=== PATIENT | female | born 1955 | race Hispanic/Latino ===

== ENCOUNTER 2017-06-26 11:49 | Emergency (ER) | payer MEDICAID, SELFPAY ==
[2017-06-26 12:28] LABS: #Basophils 0.1 thou/uL (0.0-0.2); #Eosinphils 0.4 thou/uL (0.0-0.7); #Lymphocytes 3.6 thou/uL (1.20-3.40); #Monocytes 0.7 thou/uL (0.11-0.59); #Neutrophils 4.7 thou/uL (1.40-6.50); %Basophils 0.6 % (0.0-1.0); %Eosinophils 4.8 % (0.0-10.0); %Lymphocytes 37.8 % (21.0-51.0); %Monocytes 7.3 % (0.0-10.0); Hematocrit 39.7 % (36.0-47.0); Mean Platelet Volume 9.5 fL (7.4-10.4); Red Blood Cell (RBC) Count 4.52 mill/uL (4.20-5.40); White Blood Cell (WBC) Count 9.4 thou/uL (4.8-10.8)
[2017-06-26 12:54] LABS: ALT (SGPT) 31 U/L (8-55); AST (SGOT) 36 U/L (5-34); Alkaline Phosphatase 170 U/L (40-150); Anion Gap 14 mmol/L (10-20); BUN (Urea Nitrogen) 20 mg/dL (9.8-20.1); Bilirubin, Total 0.4 mg/dL (0.2-1.2); Calc. Creatinine Clearance 0 mL/min (70-130); Calcium 9.3 mg/dL (7.8-10.44); Carbon Dioxide 21 mmol/L (22-29); Chloride 102 mmol/L (98-107); Estimated GFR-MDRD 55; Globulin 4.8 g/dL (2.4-3.5); Protein, Total 8.3 g/dL (6.0-8.3)
[2017-06-26 14:01] LABS: Bilirubin Large (Negative); Blood, Urine Large (Negative); Glucose, Urine (Dipstick) 250 mg/dL (Negative); Ketone, Urine 15 mg/dL (Negative); Nitrite Positive (Negative); Protein, Urine (Dipstick) 300 mg/dL (Neg-Trace)
[2017-06-26 14:03] LABS: Bacteria/HPF None Seen HPF (None Seen); Hyaline Casts/LPF 0-3 HYALINE CAST LPF (0-3 Hyaline); Squamous Epithelial None Seen HPF (0-3); WBC/HPF 21-50 HPF (0-3)
[2017-06-26] MEDS ORDERED: Sodium Bicarb 50 MEQ/50 ML Abboject 8.4% SYRINGE ONE (14:04)
[2017-06-26] MEDS ORDERED: Fentanyl 100 MCG/2 ML VIAL ONE (14:04)
[2017-06-26] MEDS ORDERED: Insulin Regular 300 UNITS/3 ML VIAL ONE (14:04)
[2017-06-26] MEDS ORDERED: Dextrose 50% Abboject 50 ML SYRINGE ONE (14:04)
[2017-06-26] MEDS ORDERED: Albuterol Sulfate 2.5 mg/0.5 ml Neb ONE (14:08)
[2017-06-26] MEDS ORDERED: Albuterol Sulfate 2.5 mg/3 ml Neb ONE (14:08)
[2017-06-26 14:11] LABS: RBC/HPF GREATER THAN 50-TNTC HPF (0-3)
[2017-06-26 15:55] LABS: Anion Gap 14 mmol/L (10-20); BUN (Urea Nitrogen) 22 mg/dL (9.8-20.1); Calc. Creatinine Clearance 0 mL/min (70-130); Calcium 9.1 mg/dL (7.8-10.44); Carbon Dioxide 25 mmol/L (22-29); Chloride 101 mmol/L (98-107); Estimated GFR-MDRD 47
[2017-06-26] MEDS ORDERED: Cephalexin 250 MG CAP ONE (16:56)
== END 2017-06-26 17:25 | disposition home or self-care (01) ==
LOC: ERS 11:49
DX: N39.0 Urinary tract infection, site not specified (principal); E87.5 Hyperkalemia; E11.9 Type 2 diabetes mellitus without complications; E78.5 Hyperlipidemia, unspecified; I10 Essential (primary) hypertension; R00.1 Bradycardia, unspecified; Z79.4 Long term (current) use of insulin; Z86.73 Personal history of transient ischemic attack (TIA), and cerebral infarction without residual deficits; Z79.899 Other long term (current) drug therapy; Z79.02 Long term (current) use of antithrombotics/antiplatelets; Z89.511 Acquired absence of right leg below knee; Z89.612 Acquired absence of left leg above knee
CPT/HCPCS: 36415; 51702; 80053; 81003; 81015; 85025; 93005; 94640; 96374; 96375; 96376; A4353; J1815; J3010; J7611

== ENCOUNTER 2018-02-10 18:38 | Emergency (ER) | payer SELFPAY ==
[2018-02-10 19:28] LABS: #Eosinphils 0.2 thou/uL (0.0-0.7); #Monocytes 1.4 thou/uL (0.11-0.59); #Neutrophils 6.1 thou/uL (1.40-6.50); %Basophils 0.4 % (0.0-1.0); %Eosinophils 2.1 % (0.0-10.0); %Lymphocytes 34.2 % (21.0-51.0); %Monocytes 11.9 % (0.0-10.0); %Neutrophils 51.5 % (42.0-75.0); Mean Corpuscular HGB CONC 33.1 g/dL (32.0-36.0); Mean Corpuscular Hemoglobin 28.7 pg (27.0-31.0); Mean Corpuscular Volume 86.7 fl (81.0-99.0); Mean Platelet Volume 8.6 fL (7.4-10.4); Platelet Count 230 thou/uL (130-400); RBC Distribution Width 13.4 % (11.5-14.5); Red Blood Cell (RBC) Count 3.83 mill/uL (4.20-5.40); White Blood Cell (WBC) Count 11.8 thou/uL (4.8-10.8)
[2018-02-10 19:50] LABS: ALT (SGPT) 32 U/L (8-55); AST (SGOT) 34 U/L (5-34); Albumin 3.2 g/dL (3.5-5.0); Alkaline Phosphatase 110 U/L (40-150); Anion Gap 15 mmol/L (10-20); BUN (Urea Nitrogen) 17 mg/dL (9.8-20.1); Bilirubin, Total 0.6 mg/dL (0.2-1.2); Calc. Creatinine Clearance 0 mL/min (70-130); Calcium 9.2 mg/dL (7.8-10.44); Carbon Dioxide 21 mmol/L (22-29); Chloride 97 mmol/L (98-107); Estimated GFR-MDRD 40; Globulin 5.1 g/dL (2.4-3.5); Glucose 160 mg/dL (70-105); Potassium 4.6 mmol/L (3.5-5.1); Protein, Total 8.3 g/dL (6.0-8.3); Sodium 128 mmol/L (136-145)
[2018-02-10 19:52] LABS: Bilirubin Negative (Negative); Blood, Urine Large (Negative); Clarity TURBID (Clear); Glucose, Urine (Dipstick) Negative (Negative); Leukocyte Large (Negative); Nitrite Negative (Negative); Protein, Urine (Dipstick) 100 mg/dL (Neg-Trace)
[2018-02-10 19:55] LABS: Bacteria/HPF 4+ HPF (None Seen); Squamous Epithelial 21-50 HPF (0-3)
[2018-02-10 19:57] LABS: Pathc Cast-AUWi Flag 48.26 (0-2.49); Yeast-AUWi Flag 78.1 (0-25.0)
[2018-02-10 20:05] LABS: Hyaline Casts/LPF 0-3 HYALINE CAST LPF (0-3 Hyaline); Other Casts/LPF None Seen LPF (0-3 Hyaline); Yeast-All Forms None Seen HPF (None Seen)
[2018-02-10] MEDS ORDERED: cefTRIAXone\\ROCEPHIN 1 GM VIAL ONE (20:47)
== END 2018-02-10 20:48 | disposition home or self-care (01) ==
LOC: ERS 18:38
DX: N39.0 Urinary tract infection, site not specified (principal); R07.89 Other chest pain; I49.9 Cardiac arrhythmia, unspecified; E11.9 Type 2 diabetes mellitus without complications; E78.5 Hyperlipidemia, unspecified; I10 Essential (primary) hypertension; Z86.73 Personal history of transient ischemic attack (TIA), and cerebral infarction without residual deficits; Z87.442 Personal history of urinary calculi; Z79.899 Other long term (current) drug therapy; Z79.82 Long term (current) use of aspirin; Z79.4 Long term (current) use of insulin
CPT/HCPCS: 36415; 51701; 80053; 81003; 81015; 85025; 93005; 96365; J0696

== ENCOUNTER 2018-03-24 15:39 | Inpatient (IN) | payer SELFPAY ==
[2018-03-24 16:44] LABS: #Eosinphils 0.3 thou/uL (0.0-0.7); #Lymphocytes 2.5 thou/uL (1.20-3.40); #Monocytes 0.6 thou/uL (0.11-0.59); #Neutrophils 5.7 thou/uL (1.40-6.50); %Basophils 0.5 % (0.0-1.0); %Eosinophils 3.6 % (0.0-10.0); %Lymphocytes 26.9 % (21.0-51.0); %Monocytes 6.9 % (0.0-10.0); %Neutrophils 62.2 % (42.0-75.0); Hemoglobin 10.2 g/dL (12.0-16.0); Mean Corpuscular HGB CONC 33.1 g/dL (32.0-36.0); Mean Corpuscular Hemoglobin 28.8 pg (27.0-31.0); Mean Corpuscular Volume 86.8 fL (78.0-98.0); Mean Platelet Volume 8.6 fL (7.4-10.4); Platelet Count 224 thou/uL (130-400); RBC Distribution Width 13.4 % (11.5-14.5); Red Blood Cell (RBC) Count 3.53 mill/uL (4.20-5.40); White Blood Cell (WBC) Count 9.1 thou/uL (4.8-10.8)
[2018-03-24 17:09] LABS: ALT (SGPT) 18 U/L (8-55); AST (SGOT) 21 U/L (5-34); Albumin 3.2 g/dL (3.4-4.8); Alkaline Phosphatase 71 U/L (40-150); Anion Gap 15 mmol/L (10-20); BUN (Urea Nitrogen) 41 mg/dL (9.8-20.1); Bilirubin, Total 0.4 mg/dL (0.2-1.2); Calc. Creatinine Clearance 0 mL/min (70-130); Calcium 8.4 mg/dL (7.8-10.44); Carbon Dioxide 17 mmol/L (23-31); Chloride 99 mmol/L (98-107); Estimated GFR-MDRD 14; Globulin 4.4 g/dL (2.4-3.5); Glucose 133 mg/dL (80-115); Lipase 85 U/L (8-78); Potassium 4.6 mmol/L (3.5-5.1); Protein, Total 7.6 g/dL (6.0-8.3); Sodium 126 mmol/L (136-145)
[2018-03-24 19:04] LABS: Bilirubin Negative (Negative); Blood, Urine Large (Negative); Clarity TURBID (Clear); Glucose, Urine (Dipstick) Negative (Negative); Leukocyte Large (Negative); Nitrite Negative (Negative); Protein, Urine (Dipstick) Trace mg/dL (Neg-Trace); Specific Gravity, Urine 1.005 (1.002-1.036); Urobilinogen 0.2 mg/dL (0.2-1.0); pH, Urine 5.5 (5.0-9.0)
[2018-03-24 19:06] LABS: Bacteria/HPF 3+ HPF (None Seen); Hyaline Casts/LPF 4-6 HYALINE CAST LPF (0-3 Hyaline); Squamous Epithelial None Seen HPF (0-3)
[2018-03-24] MEDS ORDERED: cefTRIAXone\\ROCEPHIN 2 GM VIAL ONE (20:29)
[2018-03-24 21:13] LABS: CKMB 2.5 ng/mL (0-6.6); Troponin I Less than 0.010 ng/mL (< 0.028)
--- NOTE | 2018-03-24 21:20 | RAD ---
ONE VIEW CHEST: 03/24/18 HISTORY: Pain. COMPARISON: 05/30/16. FINDINGS: Normal cardiac silhouette. The pulmonary vessels and hilum are normal. Costophrenic angles are clear. No consolidation or mass. No pneumothorax. Irregularity involving the proximal right humerus. Correl ate for an acute process. Dedicated humerus radiograph may be beneficial. Left sided transvenous pace maker is unchanged. IMPRESSION: 1. No acute cardiopulmonary process. 2. Changes involving the proximal right humerus. Correlate clinically. Dedicated imaging as so hawkins. POS: [facility]
[2018-03-25 01:22] VITALS: BMI 40.1
[2018-03-25] MEDS: Sodium Chloride 0.9% 1,000 ML IV SCH ×4 (02:11→18:18)
[2018-03-25] MEDS ORDERED: Dextrose 5% in Water 1,000 ML IV PRN (04:24)
[2018-03-25] MEDS ORDERED: Dextrose 50% Abboject 50 ML SYRINGE SLOW IVP PRN (04:24)
[2018-03-25] MEDS ORDERED: Ondansetron ODT 4 MG TAB PO PRN (05:10)
[2018-03-25] MEDS ORDERED: Ondansetron HCl/PF 4 MG/2 ML Vial IVP PRN (05:10)
--- NOTE | 2018-03-25 05:13 | HP ---
DATE OF ADMISSION: 03/24/2018 PRIMARY CARE PHYSICIAN: Celine Jones M.D. CHIEF COMPLAINT: Generalized weakness with low blood sugar. HISTORY OF PRESENT ILLNESS: The patient is a 63-year-old female with hypertension, chronic kidney di sease stage 3, and diabetes mellitus type 2, presented to the hospital with above complaints. The patient was recently diagnosed with urinary tract infection. She was started on ciprofloxacin by her PCP. She continues to have generalized weakness with foul odor urine. She had some dysuria; ho wever, denies any hematuria or urgency. She has been feeling generally weak. She had 3-4 episodes o f watery diarrhea yesterday. She felt nauseous; however, denies any vomiting. She takes 40 units of NovoLog mix 70/30 twice a day. She is not eating much due to generalized weakness. PAST MEDICAL HISTORY: 1. Diabetes mellitus type 2. 2. Hypertension. 3. History of Escherichia coli urinary tract infection in 2016. 4. Peripheral vascular disease, status post bilateral below knee amputation. 5. Hypertension. 6. Dyslipidemia. 7. History of cerebrovascular accident. 8. Chronic kidney disease stage 3. 9. Coronary artery disease. PAST SURGICAL HISTORY: 1. Bilateral below knee amputation. 2. History of bradycardia, status post pacemaker placement. 3. . 4. Chronic anemia. ALLERGIES: No known drug allergies. HOME MEDICATIONS: To be verified with the family. SOCIAL HISTORY: The patient currently lives at home with her . Daughter is the caregiver. N o tobacco, alcohol, or drug use reported. FAMILY HISTORY: Negative for heart disease or inheritable diseases. REVIEW OF SYSTEMS: The following complete review of systems was negative, unless otherwise mentioned in the HPI or below: Constitutional: Weight loss or gain, ability to conduct usual activities. Ski n: Rash, itching. Eyes: Double vision, pain. ENT/Mouth: Nose bleeding, neck stiffness, pain, tend erness. Cardiovascular: Palpitations, dyspnea on exertion, orthopnea. Respiratory: Shortness of b reath, wheezing, cough, hemoptysis, fever or night sweats. Gastrointestinal: Poor appetite, abdomin al pain, heartburn, nausea, vomiting, constipation, or diarrhea. Genitourinary: Urgency, frequency, dysuria, nocturia. Musculoskeletal: Pain, swelling. Neurologic/Psychiatric: Anxiety, depression. Allergy/Immunologic: Skin rash, bleeding tendency. PHYSICAL EXAMINATION: VITAL SIGNS: In the emergency room showed temperature 99 with respiration 18, pulse rate of 80, bloo d pressure 138/79 with O2 saturation 96% on room air. GENERAL: A 63-year-old female in no apparent distress. Feels generally weak. HEENT: Atraumatic, normocephalic, Sclerae are anicteric. Moist mucous membrane, no oral lesion. NECK: Supple, no JVD appreciated. No carotid bruit. LUNGS: Clear to auscultation bilaterally, no wheezing, rales, or rhonchi. HEART: S1, S2 present. Regular rate and rhythm. No murmur, rubs, or gallops appreciated. ABDOMEN: Soft, nontender, bowel sounds present. There was costovertebral angle tenderness on the le ft. EXTREMITIES: The patient has bilateral below knee amputation. SKIN: Warm and dry. LYMPH NODES: No palpable lymph nodes in the neck. PERIPHERAL VASCULAR: Radial pulses palpable bilaterally. MUSCULOSKELETAL: No joint swelling or tenderness. LABORATORY FINDINGS: CBC showed WBC 9.1 with hemoglobin 10.2, hematocrit 30.6, and platelet 224. Ch emistries showed sodium 126, potassium 4.6, chloride 99, bicarbonate 17, BUN 41, creatinine 3.29. Cr eatinine last year was 1.02. Blood sugar in the emergency room was 50. Urinalysis showed greater th an 50 wbc's with 3+ bacteria. Chest x-ray by my review was negative for infiltrate. EKG by my toya w showed sinus rhythm with left axis deviation, right bundle branch block. IMPRESSION: 1. Hypoglycemia, probably secondary to poor appetite. The patient continues to take full dose of in sulin. 2. Acute kidney injury on chronic kidney disease stage 3, multifactorial. 3. Urinary tract infection, patient failed outpatient therapy. 4. Metabolic acidosis, probably secondary to renal failure. 5. Hyponatremia, probably secondary to dehydration. 6. Chronic anemia. 7. Hypertension. 8. Hyperlipidemia. 9. Coronary artery disease. 10. History of bradycardia, status post pacemaker. 11. History of cerebrovascular accident. PLAN: The patient is currently admitted on the telemetry unit. We will continue empiric antibiotics . Her blood sugars will be done every 2 hours. We will initiate hypoglycemic protocol. We will hol d long-acting insulin for now. We will resume other home medications once confirmed. We will get re nal ultrasound for acute kidney injury. We will continue IV fluids at 150 mL per hour. Blood and ur ine cultures have been sent. Plan of care was discussed with the patient in detail, she stated understanding. Please note that avelina staples is [place]ic-speaking only. History was obtained with the help of her at the bedside.
[2018-03-25 06:10] LABS: Anion Gap 12 mmol/L (10-20); BUN (Urea Nitrogen) 36 mg/dL (9.8-20.1); BUN/Creatinine Ratio 12.29; Calc. Creatinine Clearance 19 mL/min (70-130); Calcium 8.2 mg/dL (7.8-10.44); Carbon Dioxide 17 mmol/L (23-31); Chloride 105 mmol/L (98-107); Estimated GFR-MDRD 16; Glucose 118 mg/dL (80-115); Phosphorus 5.4 mg/dL (2.3-4.7); Potassium 5.1 mmol/L (3.5-5.1); Sodium 129 mmol/L (136-145)
[2018-03-25 06:12] LABS: #Eosinphils 0.3 thou/uL (0.0-0.7); #Monocytes 0.6 thou/uL (0.11-0.59); #Neutrophils 4.9 thou/uL (1.40-6.50); %Basophils 0.6 % (0.0-1.0); %Eosinophils 4.2 % (0.0-10.0); %Lymphocytes 25.1 % (21.0-51.0); %Neutrophils 62.2 % (42.0-75.0); Hemoglobin 10.1 g/dL (12.0-16.0); Mean Corpuscular HGB CONC 32.3 g/dL (32.0-36.0); Mean Corpuscular Volume 86.8 fL (78.0-98.0); Mean Platelet Volume 8.7 fL (7.4-10.4); Platelet Count 194 thou/uL (130-400); RBC Distribution Width 13.6 % (11.5-14.5); Red Blood Cell (RBC) Count 3.62 mill/uL (4.20-5.40); White Blood Cell (WBC) Count 7.8 thou/uL (4.8-10.8)
[2018-03-25] MEDS: Heparin 5,000 UNITS/ML VIAL SC SCH ×2 (09:30→21:32)
[2018-03-25] MEDS: Clopidogrel Bisulfate 75 MG TAB PO SCH (09:30)
[2018-03-25] MEDS: Famotidine 20 MG TAB PO SCH (09:30)
--- NOTE | 2018-03-25 10:52 | ULT ---
RENAL SONOGRAM: Date: 03-25-18 History: Acute renal insufficiency. FINDINGS: Kidneys demonstrate a normal sonographic appearance without evidence of a renal mass, renal calculus or hydronephrosis. The right kidney measures 10.8 cm x 5.4 cm with the left kidney measuring 10.6 cm x 6.7 cm. There is no evidence of renal cortical thinning. No perinephric fluid collection is identified. Urinary bladder is partially distended with urinary bladder volume of 228.5 ml. The urinary bladder h as a grossly normal sonographic appearance. The ureteral jets are seen bilaterally on color flow eval uation. IMPRESSION: Normal appearing bilateral kidneys without evidence of hydronephrosis. POS: [facility]
[2018-03-25 17:37] LABS: Hemoglobin A1c 7.9 % (4.0-6.0)
[2018-03-25] MEDS: cefTRIAXone\\ROCEPHIN 1 GM in Sodium Chloride 0.9% 100 ML IVPB SCH (21:31)
[2018-03-25] MEDS: Insulin Regular 300 UNITS/3 ML VIAL SC PRN (21:31)
[2018-03-25] MEDS: Simvastatin 20 MG TAB PO SCH (21:32)
--- NOTE | 2018-03-25 22:34 | PDOC.EVN ---
Event Note - Event Note Event Note: Records reviewed. Patient examined. Has recurrent UTI's. Has been on antibiotics but still has some infection. Will need to wait on the culture results. Needs post-void residuals. Urology.
--- NOTE | 2018-03-25 23:04 | CON ---
DATE OF CONSULTATION: 03/25/2018 PRIMARY CARE PHYSICIAN: Dr. Jones. REFERRING: Hospitalist. REASON FOR CONSULTATION: Recurrent urinary tract infection. HISTORY OF PRESENT ILLNESS: Ms. Redman is a 63-year-old female admitted due to acute kidney injury, UTI, recurrent with metabolic acidosis, hyponatremia. Patient admitted through the Hospitalist Service, renal ultrasound was obtained due to acute kidney injury with creatinine of 3.2. Negative for hydronephrosis. I saw the patient once, referred by Dr. Jones back in 07/2017 with no subsequent followup. Her two [id number] are at bedside. They relate that they were unable to follow up with appointments, workup due to financial constraints, relates that they have been seen in Urgent Care setting for recurrent UTI and discharged with antibiotic therapy. Due to persistent symptoms, generalized malaise and vague abdominal discomfort and urine output demonstrating findings concerning for cystitis, they presented to the emergency room. On initial visit with me, her physical exam demonstrated grade I rectocele, I was able to pass the catheter without significant issues, she had 350 mL of post-void residual. She was advised regarding workup with imaging, cystoscopy at a later date. However, subsequent note showed she does have a prior CT dating back to August 11/2016 demonstrating bilateral renal cortical scarring with no hydronephrosis. Prior CT with UTI in 01/2016 demonstrated punctate focus of air consistent with cystitis. Suspicion was low for occult colovesical fistula as there is no significant perivesical stranding , nor significant inflammatory bowel adherence. However, she was advised regarding cystoscopy at a later date with no show. PAST MEDICAL HISTORY: Diabetes, poorly controlled, CVA, CAD, pacemaker, GERD. PAST SURGICAL HISTORY: Pacemaker in 2009. Bilateral BKA, debridement of right foot. CURRENT MEDICATIONS: Include Tylenol, aspirin, Plavix, Rocephin, Pepcid, glucagon, heparin subQ, Humulin, Zofran, Zocor. ALLERGIES: No known drug allergies. PHYSICAL EXAMINATION: VITAL SIGNS: She is afebrile. Vital signs are stable. She has been incontinent of urine. PVR per my request demonstrated 250 mL. GENERAL: Patient is resting comfortably. HEENT: Grossly unremarkable. HEART: Regular rate. LUNGS: Clear. ABDOMEN: Soft. Midline infraumbilical incision consistent with prior C- section. Postvoid residual was approximately 250-300 at bedside on bladder scan. GENITOURINARY: Demonstrates severe atrophic vaginitis grade I-II rectocele. Urethral meatus is easily visible. EXTREMITIES: Lower extremity consistent with bilateral BKA. As family relates that there is pustular discharge previously, I did place a catheter at bedside demonstrating approximately 250 mL of initial clear urine. Pyeocystitis is noted. Cultures were sent. Blood tinged urine at the end of emptying bladder was noted. It flushes gently with ease. PERTINENT LABS AND IMAGING: Urine culture gram negative lb. UA demonstrates yellow with large blood, 11-20 rbc's, greater than 50 wbc's, 3+ bacteria. Blood culture is negative thus far. Her hemoglobin A1c back in 01/2015 was 13, 8.8 in 07/2016. Baseline creatinine 0.7-1.3, admitting creatinine 3.2, currently 2.9, hyponatremia at 129 is noted. Renal ultrasound on this admission demonstrates no evidence of hydronephrosis. Patient has been on aggressive IV fluid resuscitation. No evidence of hydronephrosis, renal mass. Bilateral ureteral jets are seen. PVR 228 on bladder ultrasound with no evidence of bladder mass. IMPRESSION AND PLAN: 1. Ms. Redman is a 63-year-old female with history of poorly controlled diabetes. 2. History of atrophic vaginitis. 3. History of incomplete void, presents with recurrent UTI, suboptimally treated. Failed outpatient treatment. Catheter placed due to pyelocystitis. Recommend aggressive IV fluids. Follow cultures. Agree with Rocephin. continue indwelling Meng catheter until urine output is relatively cleared. MTDD
[2018-03-25] MEDS: Acetaminophen 325 MG TAB PO PRN (23:21)
[2018-03-26] MEDS: Sodium Chloride 0.9% 1,000 ML IV SCH ×3 (01:43→16:24)
--- NOTE | 2018-03-26 09:01 | PRG ---
DATE OF SERVICE: 03/26/2018 SUBJECTIVE: The patient is resting comfortably. PHYSICAL EXAMINATION: VITAL SIGNS: Afebrile. Strict I's and O's not documented. She has had 2 liters of urine output, clear dilute, there is some sediment. She has had multiple bowel movements per nursing staff. C. diff culture yet to be collected. Physical exam: Patient sleeping comfortably Abdomen: Soft nontender nondistended, Meng catheter demonstrating yellow urine , with some sediments E: Bilateral BKA LABORATORY DATA: There are no recent labs from today. Yesterday White count 7 , hemoglobin 10. The patient was admitted with creatinine of 3.2, yesterday 2.9. Baseline creatinine variable from 0.7 to 1.3. Renal ultrasound on admission demonstrating no evidence of hydronephrosis. IMPRESSION AND PLAN: 1. Ms. Redman is a 63-year-old female with history of poorly controlled diabetes. 2. Cerebrovascular accident. 3. Coronary artery disease. 4. Acute renal insufficiency prerenal/renal: No evidence of hydronephrosis 5. Recurrent urinary tract infection, with history of incomplete void of PVR of 250-300. 6. History of noncompliance. Current admission due to failed outpatient treatment of urinary tract infection. Final urine culture is pending. She is on Rocephin with no evidence of septic parameters. I did place a Meng catheter yesterday with 250- 300 mL of post-void residual, with significant pyocystitis. Therefore, Meng catheter will remain in situ until she clinically recovers from her acute urinary tract infection. She is being worked up for possible C. diff as she has had profuse diarrhea. Anticipate patient will stay in the hospital over the weekend. When she is clinically improved , will initiate voiding trial and monitor postvoid residual. teach family CIC if indicated. Continue medical management with antibiotics, Meng for now. Dr. Mcdonough covering me this weekend for p.r.n. issues. MTDD
[2018-03-26] MEDS: Famotidine 20 MG TAB PO SCH (09:29)
[2018-03-26] MEDS: Clopidogrel Bisulfate 75 MG TAB PO SCH (09:29)
[2018-03-26] MEDS: Heparin 5,000 UNITS/ML VIAL SC SCH ×2 (09:30→20:27)
[2018-03-26] MEDS: Insulin Regular 300 UNITS/3 ML VIAL SC PRN (11:43)
[2018-03-26] MEDS: cefTRIAXone\\ROCEPHIN 1 GM in Sodium Chloride 0.9% 100 ML IVPB SCH (20:26)
[2018-03-26] MEDS: Simvastatin 20 MG TAB PO SCH (20:27)
--- NOTE | 2018-03-26 23:04 | PDOC.PN ---
- Subjective Encounter Start Date: 03/26/18 Encounter Start Time: 15:35 Doing better. No new complaints. - Objective Resuscitation Status: Resuscitation Status FULL:Full Resuscitation Vital Signs & Weight: Vital Signs (12 hours) Temp Pulse Resp BP Pulse Ox 03/26/18 20:24 98.5 F 70 20 99 03/26/18 20:00 98.5 F 70 20 177/61 H 100 03/26/18 16:00 98.8 F 63 20 165/44 H 99 03/26/18 15:20 99 03/26/18 12:00 98.5 F 80 22 H 147/52 H 99 Weight Weight 131 lb 6 oz I&O: 03/25/18 03/26/18 03/27/18 06:59 06:59 06:59 Intake Total 811 2950 2650 Output Total 1999 2450 Balance 811 950 200 Result Diagrams: 03/25/18 05:13 03/25/18 05:13 Additional Labs: Accuchecks 03/26/18 03/26/18 03/26/18 20:29 16:46 10:42 POC Glucose 295 H 306 H 263 H 03/26/18 03/26/18 08:19 05:43 POC Glucose 170 H 162 H Phys Exam - Physical Examination Constitutional: NAD HEENT: oral pharynx no lesions Respiratory: no wheezing, no rales, no rhonchi, clear to auscultation bilateral Cardiovascular: RRR, no significant murmur Gastrointestinal: soft, non-tender, no distention, positive bowel sounds Musculoskeletal: no edema BLE BKA Dx/Plan (1) Urine retention Code(s): R33.9 - RETENTION OF URINE, UNSPECIFIED Status: Acute (2) UTI (urinary tract infection) Status: Acute (3) CKD (chronic kidney disease), stage III Status: Chronic (4) Diabetes type 2, uncontrolled Code(s): E11.65 - TYPE 2 DIABETES MELLITUS WITH HYPERGLYCEMIA Status: Chronic Qualifiers: - Plan * Continue with Abx. Leave Meng for now. Will need bladder training.
[2018-03-27] MEDS: Insulin Regular 300 UNITS/3 ML VIAL SC PRN ×4 (01:35→20:09)
[2018-03-27] MEDS: Sodium Chloride 0.9% 1,000 ML IV SCH ×3 (03:33→17:52)
[2018-03-27] MEDS: Heparin 5,000 UNITS/ML VIAL SC SCH ×2 (09:33→20:05)
[2018-03-27] MEDS: Clopidogrel Bisulfate 75 MG TAB PO SCH (09:33)
[2018-03-27] MEDS: Famotidine 20 MG TAB PO SCH (09:33)
--- NOTE | 2018-03-27 11:17 | EKG ---
Test Reason : Blood Pressure : / mmHG Vent. Rate : 072 BPM Atrial Rate : 072 BPM P-R Int : 166 ms QRS Dur : 128 ms QT Int : 492 ms P-R-T Axes : -02 -61 -05 degrees QTc Int : 538 ms Normal sinus rhythm Left axis deviation Right bundle branch block Possible Lateral infarct , age undetermined Inferior infarct , age undetermined Abnormal ECG Confirmed by KELLY STAPLETON M.D. ([id number]), graphic editor FANI CRUZ ([id number]) on 03/27/2018 11:17:08 AM Referred By: Confirmed By:KELLY STAPLETON M.D.
--- NOTE | 2018-03-27 12:25 | PDOC.PN ---
- Subjective Encounter Start Date: 03/27/18 Encounter Start Time: 12:21 Doing very well. No new complaints. She has understanding of the situation. - Objective Resuscitation Status: Resuscitation Status FULL:Full Resuscitation Vital Signs & Weight: Vital Signs (12 hours) Temp Pulse Resp BP Pulse Ox 03/27/18 11:00 98.7 F 72 18 177/70 H 100 03/27/18 10:59 100 03/27/18 07:49 98.5 F 66 20 98 03/27/18 07:00 98.5 F 66 20 161/62 H 100 03/27/18 03:57 97.7 F 74 20 182/61 H 100 Weight Weight 131 lb 6 oz I&O: 03/26/18 03/27/18 03/28/18 06:59 06:59 06:59 Intake Total 2950 4527 Output Total 1999 5350 Balance 950 -823 Result Diagrams: 03/25/18 05:13 03/25/18 05:13 Additional Labs: Accuchecks 03/27/18 03/27/18 03/27/18 10:38 05:40 01:31 POC Glucose 190 H 172 H 271 H 03/26/18 03/26/18 20:29 16:46 POC Glucose 295 H 306 H Phys Exam - Physical Examination Constitutional: NAD Respiratory: no wheezing, no rales, no rhonchi, clear to auscultation bilateral Cardiovascular: RRR, no significant murmur, no rub Gastrointestinal: soft, non-tender, no distention Musculoskeletal: no edema Psychiatric: normal affect Dx/Plan (1) Urine retention Code(s): R33.9 - RETENTION OF URINE, UNSPECIFIED Status: Acute Comment: Urology consulted. Meng placed. (2) UTI (urinary tract infection) Status: Acute (3) CKD (chronic kidney disease), stage III Status: Chronic (4) Diabetes type 2, uncontrolled Code(s): E11.65 - TYPE 2 DIABETES MELLITUS WITH HYPERGLYCEMIA Status: Chronic Qualifiers: - Plan * Continue IV abx. E. coli. May have some oral options with Augmentin or Omnicef. Will consider that in a day or two. * Continue to control blood sugars. * Will keep Meng for now. Anticipate follow up from Urology on Thursday with removal of the Meng and bladder training. May be able to do that as outpatient.
[2018-03-27] MEDS: cefTRIAXone\\ROCEPHIN 1 GM in Sodium Chloride 0.9% 100 ML IVPB SCH (20:05)
[2018-03-27] MEDS: Simvastatin 20 MG TAB PO SCH (20:05)
[2018-03-28] MEDS: Sodium Chloride 0.9% 1,000 ML IV SCH ×4 (01:35→18:17)
[2018-03-28] MEDS: Insulin Regular 300 UNITS/3 ML VIAL SC PRN ×3 (06:05→16:25)
[2018-03-28] MEDS: Clopidogrel Bisulfate 75 MG TAB PO SCH (08:56)
[2018-03-28] MEDS: Famotidine 20 MG TAB PO SCH (08:56)
[2018-03-28] MEDS: Heparin 5,000 UNITS/ML VIAL SC SCH ×2 (08:57→21:57)
[2018-03-28 09:16] LABS: #Eosinphils 0.4 thou/uL (0.0-0.7); #Lymphocytes 2.1 thou/uL (1.20-3.40); #Monocytes 0.3 thou/uL (0.11-0.59); %Basophils 0.4 % (0.0-1.0); %Eosinophils 6.2 % (0.0-10.0); %Lymphocytes 35.7 % (21.0-51.0); %Monocytes 5.5 % (0.0-10.0); %Neutrophils 52.3 % (42.0-75.0); Hemoglobin 10.7 g/dL (12.0-16.0); Mean Corpuscular HGB CONC 33.3 g/dL (32.0-36.0); Mean Corpuscular Volume 87.1 fL (78.0-98.0); Mean Platelet Volume 8.5 fL (7.4-10.4); Platelet Count 207 thou/uL (130-400); RBC Distribution Width 13.4 % (11.5-14.5); Red Blood Cell (RBC) Count 3.68 mill/uL (4.20-5.40); White Blood Cell (WBC) Count 5.8 thou/uL (4.8-10.8)
--- NOTE | 2018-03-28 09:16 | PDOC.PN ---
- Subjective Encounter Start Date: 03/28/18 Encounter Start Time: 09:14 Doing well today. No new complaints. - Objective Resuscitation Status: Resuscitation Status FULL:Full Resuscitation MAR Reviewed: Yes Vital Signs & Weight: Vital Signs (12 hours) Temp Pulse Resp BP Pulse Ox 03/28/18 07:53 98.3 F 78 20 169/67 H 95 03/28/18 04:00 98.2 F 78 19 176/76 H 96 03/28/18 00:57 166/75 H 03/28/18 00:00 98 F 71 19 182/76 H 98 Weight Weight 131 lb 6 oz I&O: 03/27/18 03/28/18 03/29/18 06:59 06:59 06:59 Intake Total 4551 5175 Output Total 1581 5502 Balance -823 -350 Result Diagrams: 03/25/18 05:13 03/25/18 05:13 Additional Labs: Accuchecks 03/28/18 03/27/18 03/27/18 05:28 20:10 17:03 POC Glucose 186 H 284 H 319 H 03/27/18 10:38 POC Glucose 190 H Phys Exam - Physical Examination Constitutional: NAD Neck: no JVD, supple Respiratory: no wheezing, no rales, no rhonchi, clear to auscultation bilateral Cardiovascular: RRR, no significant murmur, no rub Gastrointestinal: soft, non-tender, no distention, positive bowel sounds Musculoskeletal: no edema Stumps look good. Psychiatric: normal affect Dx/Plan (1) Urine retention Code(s): R33.9 - RETENTION OF URINE, UNSPECIFIED Status: Acute Comment: Urology consulted. Meng placed. Hope to have Urology see patient again in the morning to address the plan for this. (2) UTI (urinary tract infection) Status: Acute Comment: E. coli. Continue IV abx today. Can likely DC tomorrow with po Omnicef with Meng for outpatient follow up with Urology or with Meng DC'd and bladder training. (3) CKD (chronic kidney disease), stage III Status: Chronic (4) Diabetes type 2, uncontrolled Code(s): E11.65 - TYPE 2 DIABETES MELLITUS WITH HYPERGLYCEMIA Status: Chronic Qualifiers: Comment: Not great control. Has been on ISS. Will resume home meds today. (5) Hypertension Code(s): I10 - ESSENTIAL (PRIMARY) HYPERTENSION Status: Chronic Qualifiers: Hypertension type: essential hypertension Qualified Code(s): I10 - Essential (primary) hypertension Comment: Resuming home meds. - Plan * .
[2018-03-28 09:40] LABS: Anion Gap 13 mmol/L (10-20); BUN (Urea Nitrogen) 15 mg/dL (9.8-20.1); Calc. Creatinine Clearance 32 mL/min (70-130); Calcium 8.3 mg/dL (7.8-10.44); Carbon Dioxide 17 mmol/L (23-31); Chloride 110 mmol/L (98-107); Estimated GFR-MDRD 30; Glucose 223 mg/dL (80-115); Potassium 4.1 mmol/L (3.5-5.1); Sodium 136 mmol/L (136-145)
[2018-03-28] MEDS ORDERED: Losartan 25 MG TAB PO SCH ×2 (10:00→23:00)
[2018-03-28] MEDS ORDERED: Insulin NPH/Reg Insulin Hm 300 UNITS/3 ML VIAL SC SCH (10:00)
[2018-03-28] MEDS ORDERED: Famotidine 20 MG TAB PO SCH (21:00)
[2018-03-28] MEDS: Simvastatin 20 MG TAB PO SCH (21:57)
[2018-03-28] MEDS: cefTRIAXone\\ROCEPHIN 1 GM in Sodium Chloride 0.9% 100 ML IVPB SCH (21:57)
[2018-03-28] MEDS: Insulin NPH/Reg Insulin Hm 300 UNITS/3 ML VIAL SC SCH (21:58)
[2018-03-28] MEDS ORDERED: hydrALAZINE 20 MG/ML VIAL SLOW IVP PRN (22:46)
[2018-03-29 05:38] LABS: Anion Gap 13 mmol/L (10-20); BUN (Urea Nitrogen) 13 mg/dL (9.8-20.1); Calc. Creatinine Clearance 34 mL/min (70-130); Carbon Dioxide 17 mmol/L (23-31); Chloride 111 mmol/L (98-107); Estimated GFR-MDRD 32; Glucose 63 mg/dL (80-115); Potassium 3.7 mmol/L (3.5-5.1); Sodium 137 mmol/L (136-145)
[2018-03-29] MEDS: Sodium Chloride 0.9% 1,000 ML IV SCH ×2 (07:03→20:27)
[2018-03-29 07:08] LABS: Hemoglobin 10.1 g/dL (12.0-16.0); Mean Corpuscular HGB CONC 33.1 g/dL (32.0-36.0); Mean Corpuscular Hemoglobin 28.9 pg (27.0-31.0); Mean Corpuscular Volume 87.5 fL (78.0-98.0); Mean Platelet Volume 8.5 fL (7.4-10.4); Platelet Count 203 thou/uL (130-400); RBC Distribution Width 13.4 % (11.5-14.5); Red Blood Cell (RBC) Count 3.48 mill/uL (4.20-5.40); White Blood Cell (WBC) Count 7.6 thou/uL (4.8-10.8)
--- NOTE | 2018-03-29 08:29 | PRG ---
DATE OF SERVICE: 03/29/2018 SUBJECTIVE: The patient is alert and awake, family at bedside. No acute complaints. PHYSICAL EXAMINATION: VITAL SIGNS: Stable. She is afebrile. I's and O's 3900 in, 4900 out, p.o. intake over 1.4 liters. ABDOMEN: Soft, nontender, nondistended. GENITOURINARY: Meng catheter demonstrating clear yellow urine, minimal sediment is noted. PERTINENT LABORATORY: Creatinine 1.62, white count 7, hemoglobin 10, platelet 203. Urine culture demonstrating E. coli resistant to quinolones and Bactrim, sensitive to cephalosporins, Macrobid. Blood culture is negative. ALLERGIES: She has no known drug allergies. Renal ultrasound on admission 03/25/2018 demonstrates no hydronephrosis. IMPRESSION AND PLAN: 1. Ms. Redman is a 63-year-old female with history of poorly controlled diabetes. Recent hemoglobin A1c has normalized. 2. History of cerebrovascular accident. 3. Coronary artery disease. 4. Chronic renal insufficiency, likely prerenal/renal as there is no evidence of hydronephrosis. 5. History of recurrent urinary tract infection with incomplete void. PVR 250- 300 mL. Currently on Rocephin, doing well. We will discontinue Meng now and initiate voiding trial and bladder rehab. Strict instructions regarding bladder scan every 6 hours to be catheterized if postvoid residual greater than 200 mL. Recommend the patient be observed for 24 hours to monitor voiding status. If she has persistent postvoid residual of concern, family member to be instructed regarding CIC technique. Elective cystoscopy is advised. MTDD
[2018-03-29 08:34] LABS: Band 5 % (5-11); Eosinophils 2 % (0-10); Lymphocytes 41 % (21-51); MDiff Complete? YES; Monocytes 6 % (0-10); Neutrophil 46 % (42-75); PLT Morphology Comment Appears Adequate; Polychromasia SLIGHT = 2-3 cells (100X) (0-2/hpf)
[2018-03-29] MEDS: Losartan 25 MG TAB PO SCH (09:00)
[2018-03-29] MEDS ORDERED: Insulin NPH/Reg Insulin Hm 300 UNITS/3 ML VIAL SC SCH (09:00)
[2018-03-29] MEDS ORDERED: Losartan 25 MG TAB PO SCH ×2 (09:00)
[2018-03-29] MEDS: Multivitamin W/ Minerals 1 TAB PO SCH (09:01)
[2018-03-29] MEDS: Clopidogrel Bisulfate 75 MG TAB PO SCH (09:01)
[2018-03-29] MEDS: Heparin 5,000 UNITS/ML VIAL SC SCH ×2 (09:01→20:27)
[2018-03-29] MEDS: Famotidine 20 MG TAB PO SCH (09:01)
[2018-03-29] MEDS: Insulin NPH/Reg Insulin Hm 300 UNITS/3 ML VIAL SC SCH ×2 (09:03→20:55)
--- NOTE | 2018-03-29 14:23 | PDOC.PN ---
- Subjective Encounter Start Date: 03/29/18 Encounter Start Time: 14:21 - Objective Resuscitation Status: Resuscitation Status FULL:Full Resuscitation Vital Signs & Weight: Vital Signs (12 hours) Temp Pulse Resp BP Pulse Ox 03/29/18 08:00 98.8 F 72 16 97 03/29/18 07:19 98.8 F 72 16 180/90 H 97 03/29/18 04:17 98.8 F 75 16 157/57 H 97 Weight Weight 131 lb 6 oz I&O: 03/28/18 03/29/18 03/30/18 06:59 06:59 06:59 Intake Total 5175 3990 Output Total 5588 4900 850 Balance -666 -910 -850 Result Diagrams: 03/29/18 04:30 03/29/18 04:30 Additional Labs: Accuchecks 03/29/18 03/29/18 03/29/18 11:22 06:29 05:39 POC Glucose 125 H 80 67 L 03/28/18 03/28/18 20:24 15:34 POC Glucose 92 163 H Phys Exam - Physical Examination Constitutional: NAD Respiratory: no wheezing, no rales, no rhonchi, clear to auscultation bilateral Cardiovascular: RRR, no significant murmur Gastrointestinal: soft, non-tender, no distention, positive bowel sounds Bilateral BKA Psychiatric: normal affect Dx/Plan (1) Urine retention Code(s): R33.9 - RETENTION OF URINE, UNSPECIFIED Status: Acute Comment: Meng DC'd. Voiding trial now. First void had PVR of 125. (2) UTI (urinary tract infection) Status: Acute Comment: E. coli. Continue IV abx today. Can likely DC tomorrow with po and with either self voiding or intermittent cath. (3) CKD (chronic kidney disease), stage III Status: Chronic (4) Diabetes type 2, uncontrolled Code(s): E11.65 - TYPE 2 DIABETES MELLITUS WITH HYPERGLYCEMIA Status: Chronic Qualifiers: Comment: Not great control. Has been on ISS. Will resume home meds today. (5) Hypertension Code(s): I10 - ESSENTIAL (PRIMARY) HYPERTENSION Status: Chronic Qualifiers: Hypertension type: essential hypertension Qualified Code(s): I10 - Essential (primary) hypertension Comment: Adding Amlodipine 5 mg po q day. - Plan * Should likely DC tomorrow with either spont voiding or intermittent cath depending on how she does with the voiding today. Will need po abx (possibly Omnicef).
[2018-03-29] MEDS: Amlodipine 5 MG TAB PO SCH (15:37)
[2018-03-29] MEDS: cefTRIAXone\\ROCEPHIN 1 GM in Sodium Chloride 0.9% 100 ML IVPB SCH (20:26)
[2018-03-29] MEDS: Simvastatin 20 MG TAB PO SCH (20:27)
[2018-03-30] MEDS: Sodium Chloride 0.9% 1,000 ML IV SCH ×2 (05:58→21:26)
--- NOTE | 2018-03-30 08:15 | PRG ---
DATE OF SERVICE: 03/30/2018 SUBJECTIVE: The patient is resting comfortably. Family member at bedside. Vital signs are stable. PHYSICAL EXAMINATION: ABDOMEN: Soft, nontender, nondistended. GENITOURINARY: Voiding diary reviewed. The patient voiding spontaneously; however, has consistent postvoid residual variable from 300 to 350 on CICs, which she is tolerating uneventfully. PERTINENT LABORATORY DATA: No new labs. 1. Last creatinine, of record, is 1.62. Admitting creatinine 3.2. 2. Renal ultrasound demonstrating no evidence of hydronephrosis. 3. Blood culture negative. 4. Urine culture demonstrating E. coli, resistant to quinolones, currently on Rocephin. IMPRESSION AND PLAN: Ms. Redman is a 63-year-old female with, 1. History of poorly controlled diabetes, prior most recent A1c has improved to 7.9. She does have a history of significantly elevated hemoglobin A1c in the past. She presents with recurrent urinary tract infection, failed outpatient treatment. 2. History of medical noncompliance with followup. Per family unable to proceed with workup due to financial constraints. 3. 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 Continue bladder rehabilitation with CICs. As there is consistent elevated postvoid residual of 350 mL, I do recommend [id number] every 6 hours. Orders provided for nursing staff to teach patient and family members. Case management consultation obtained, as they need financial assistance, obtained CICs catheter supplies, timeline is indefinite, as the patient may have chronic retention requiring indefinite time CICs, pending clinical course. The patient can be discharged when medically cleared. However, her financial issues with CIC catheter needs to be addressed prior to discharge. appointment is in chart. She may be transitioned to oral Omnicef for 7-10 days. followup appointment in chart, 04/27/2018 at 11:00 a.m. Recommend the patient/family keep a voiding diary of post-void residual. Elective cystoscopy at a later date. LAURENT
[2018-03-30] MEDS: Heparin 5,000 UNITS/ML VIAL SC SCH ×2 (09:27→21:12)
[2018-03-30] MEDS: Insulin NPH/Reg Insulin Hm 300 UNITS/3 ML VIAL SC SCH ×2 (09:29→21:12)
[2018-03-30] MEDS: Losartan 25 MG TAB PO SCH (09:30)
[2018-03-30] MEDS: Amlodipine 5 MG TAB PO SCH ×2 (09:31→15:36)
[2018-03-30] MEDS: Multivitamin W/ Minerals 1 TAB PO SCH (09:31)
[2018-03-30] MEDS: Clopidogrel Bisulfate 75 MG TAB PO SCH (09:31)
[2018-03-30] MEDS: Famotidine 20 MG TAB PO SCH (09:31)
[2018-03-30] MEDS: Acetaminophen 325 MG TAB PO PRN (13:18)
--- NOTE | 2018-03-30 15:15 | PDOC.PN ---
- Subjective Encounter Start Date: 03/30/18 Encounter Start Time: 15:13 Patient seen and examined, no new issues in last 24 hours. - Objective Resuscitation Status: Resuscitation Status FULL:Full Resuscitation Vital Signs & Weight: Vital Signs (12 hours) Temp Pulse Resp BP Pulse Ox 03/30/18 11:36 98.5 F 79 16 142/79 H 98 03/30/18 09:31 74 03/30/18 08:00 98.5 F 74 20 03/30/18 07:05 98.5 F 74 14 151/77 H 97 03/30/18 03:51 97.8 F 72 16 149/81 H 97 Weight Weight 131 lb 6 oz I&O: 03/29/18 03/30/18 03/31/18 06:59 06:59 06:59 Intake Total 3990 1790 Output Total 4900 3280 Balance -910 -1490 Result Diagrams: 03/29/18 04:30 03/29/18 04:30 Additional Labs: Accuchecks 03/30/18 03/30/18 03/30/18 11:40 05:31 02:18 POC Glucose 190 H 94 89 03/29/18 03/29/18 20:28 15:34 POC Glucose 131 H 134 H Phys Exam - Physical Examination Constitutional: NAD HEENT: PERRLA, moist MMs, sclera anicteric Neck: no nodes, no JVD, supple Respiratory: no wheezing, no rales, no rhonchi Cardiovascular: RRR, no significant murmur, no rub Gastrointestinal: soft, non-tender, no distention, positive bowel sounds Musculoskeletal: pulses present, edema present (trace) Dx/Plan (1) Urine retention Code(s): R33.9 - RETENTION OF URINE, UNSPECIFIED Status: Acute Comment: Meng DC'd. Voiding trial now. First void had PVR of 125. (2) UTI (urinary tract infection) Status: Acute Comment: E. coli. Continue IV abx today. Can likely DC tomorrow with po and with either self voiding or intermittent cath. (3) CKD (chronic kidney disease), stage III Status: Chronic (4) CVA, old, hemiparesis Code(s): I69.359 - HEMIPLGA FOLLOWING CEREBRAL INFARCTION AFFECTING UNSP SIDE Status: Chronic Comment: left hemiparesis (5) Diabetes type 2, uncontrolled Code(s): E11.65 - TYPE 2 DIABETES MELLITUS WITH HYPERGLYCEMIA Status: Chronic Qualifiers: Comment: Not great control. Has been on ISS. Will resume home meds today. (6) PVD (peripheral vascular disease) Code(s): I73.9 - PERIPHERAL VASCULAR DISEASE, UNSPECIFIED Status: Chronic - Plan * continue current plan of care * intermittent cathaterizations for now * pending insurance approval for catheter * DC plans once everything arranged
[2018-03-30] MEDS: Insulin Regular 300 UNITS/3 ML VIAL SC PRN (16:45)
[2018-03-30] MEDS: Simvastatin 20 MG TAB PO SCH (21:11)
[2018-03-30] MEDS: cefTRIAXone\\ROCEPHIN 1 GM in Sodium Chloride 0.9% 100 ML IVPB SCH (21:11)
--- NOTE | 2018-03-31 07:30 | PRG ---
DATE OF SERVICE: 03/31/2018 SUBJECTIVE: The patient is sleeping comfortably, denies pain, is easily arousable. PHYSICAL EXAMINATION: VITAL SIGNS: Stable. I's and O's reviewed, patient has been catheterized per my orders, postvoid residual variable on average approximately 300 mL. ABDOMEN: Soft, nontender, nondistended. No suprapubic tenderness. LABORATORY DATA: Urine culture, E. coli. Blood culture negative. Repeat urine culture negative. Renal ultrasound negative. IMPRESSION AND PLAN: 1. Ms. Redman is a 63-year-old female with history of poorly controlled diabetes. 2. History of recurrent urinary tract infection outpatient failed therapy. 3. 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 As her postvoid residual has routinely been around 300 mL, patient/family are to perform clean intermittent catheterization at home 4 times a day. Orders are in chart. Recommend Omnicef for 7-10 days as an outpatient. appointment is in chart. Instructions for voiding diary to monitor each urethral void, postvoid residual catheterized amount advised. Case management consult ordered yesterday. I do not see any note of record. As patient is nonfunded, will require assistance to apply catheter supplies. She is to use a new catheter each time she is catheterized due to history of UTI. Once catheter supply issue has been addressed with case management for financial assistance, she may be discharged. will sign off. Call if any questions or concerns. LAURENT
[2018-03-31] MEDS: Multivitamin W/ Minerals 1 TAB PO SCH (08:35)
[2018-03-31] MEDS: Clopidogrel Bisulfate 75 MG TAB PO SCH (08:35)
[2018-03-31] MEDS: Heparin 5,000 UNITS/ML VIAL SC SCH (08:35)
[2018-03-31] MEDS: Amlodipine 5 MG TAB PO SCH ×2 (08:35→15:57)
[2018-03-31] MEDS: Losartan 25 MG TAB PO SCH (08:35)
[2018-03-31] MEDS: Famotidine 20 MG TAB PO SCH (08:35)
[2018-03-31] MEDS: Insulin NPH/Reg Insulin Hm 300 UNITS/3 ML VIAL SC SCH (08:36)
[2018-03-31] MEDS: Sodium Chloride 0.9% 1,000 ML IV SCH (11:58)
[2018-03-31 16:07] VITALS: BP 146/77; TEMP 97.6
--- NOTE | 2018-04-01 04:24 | DIS ---
DATE OF ADMISSION: 03/24/2018 DATE OF DISCHARGE: 03/31/2018 ADMISSION DIAGNOSES: 1. Hypoglycemia. 2. Pain all over. 3. Repeated urinary tract infection. 4. Urinary tract obstruction/retention. 5. Chronic kidney disease, stage 3. 6. Uncontrolled diabetes mellitus. DISCHARGE DIAGNOSES: 1. Hypoglycemia. 2. Pain all over. 3. Repeated urinary tract infection. 4. Urinary tract obstruction/retention. 5. Chronic kidney disease, stage 3. 6. Uncontrolled diabetes mellitus. 7. Escherichia coli urinary tract infection. 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 Patient has a hist ory of repeated urinary tract infection and also retention of urine with this complicating the preven tion and treatment of the patient infections. Patient's urine over here was positive for E. coli lana t was simon susceptible to antibiotics. Initially, she was treated with IV antibiotics here and then d ischarged with nitrofurantoin for 10 days. Repeat urine culture was negative. Blood cultures were n egative and patient's provider was shown how to do the catheterization for the patient to empty the b ladder completely. PHYSICAL EXAMINATION: CVS: Regular rate and rhythm. CHEST: Good airway entry, +4 breathing sounds equally on both sides. No wheezes, no rales. ABDOMEN: Soft, NT/ND. DISCHARGE INSTRUCTIONS: 1. Patient's provider was shown how to do the bladder catheterization. 2. Please continue all the home medications and take the antibiotics as prescribed. 3. Please follow up with the urologist and also the primary care physician. 4. Diabetic diet and activity as tolerated.
== END 2018-03-31 18:47 | disposition home or self-care (01) | DRG 638 ==
LOC: ERS 15:39 → ERHOLD 21:55 → IMCU/EMU 03-25 00:29 → SJJU 03-27 20:46
PROVIDERS: ADMIT Family Medicine; ATTEND Family Medicine
DX: E11.649 Type 2 diabetes mellitus with hypoglycemia without coma (principal); N39.0 Urinary tract infection, site not specified; E87.2 Acidosis; E87.1 Hypo-osmolality and hyponatremia; I69.354 Hemiplegia and hemiparesis following cerebral infarction affecting left non-dominant side; E11.22 Type 2 diabetes mellitus with diabetic chronic kidney disease; I12.9 Hypertensive chronic kidney disease with stage 1 through stage 4 chronic kidney disease, or unspecified chronic kidney disease; N18.3 Chronic kidney disease, stage 3 (moderate); E11.51 Type 2 diabetes mellitus with diabetic peripheral angiopathy without gangrene; E78.5 Hyperlipidemia, unspecified; I25.10 Atherosclerotic heart disease of native coronary artery without angina pectoris; N17.9 Acute kidney failure, unspecified; E86.0 Dehydration; D64.9 Anemia, unspecified; R33.9 Retention of urine, unspecified; B96.20 Unspecified Escherichia coli [E. coli] as the cause of diseases classified elsewhere; Z79.4 Long term (current) use of insulin; Z95.0 Presence of cardiac pacemaker; Z89.512 Acquired absence of left leg below knee; Z89.511 Acquired absence of right leg below knee
CPT/HCPCS: 36415; 36416; 71045; 76770; 80048; 80053; 80069; 81003; 81015; 82553; 83036; 83605; 83690; 84484; 85025; 87040; 87077; 87086; 87186; 87324; 87449; 93005; 94760; 96365; A4216; A4353; J0696; J1644; J1815; J7050

== ENCOUNTER 2019-10-31 20:32 | Inpatient (IN) | payer OTHER, SELFPAY ==
[2019-10-31 21:09] LABS: #Eosinphils 0.3 thou/uL (0.0-0.7); #Lymphocytes 3.1 thou/uL (1.20-3.40); #Monocytes 1.4 thou/uL (0.11-0.59); %Basophils 0.3 % (0.0-1.0); %Lymphocytes 18.5 % (21.0-51.0); %Monocytes 8.1 % (0.0-10.0); %Neutrophils 71.1 % (42.0-75.0); Hemoglobin 10.2 g/dL (12.0-16.0); Mean Corpuscular HGB CONC 31.8 g/dL (32.0-36.0); Mean Corpuscular Hemoglobin 28.4 pg (27.0-31.0); Mean Corpuscular Volume 89.1 fL (78.0-98.0); Mean Platelet Volume 8.3 fL (7.4-10.4); Platelet Count 290 thou/uL (130-400); RBC Distribution Width 13.8 % (11.5-14.5); Red Blood Cell (RBC) Count 3.59 mill/uL (4.20-5.40); White Blood Cell (WBC) Count 16.9 thou/uL (4.8-10.8)
--- NOTE | 2019-10-31 21:10 | RAD ---
EXAM: CHEST ONE VIEW HISTORY: Generalized weakness for past 3 days COMPARISON: 04/03/2018 FINDINGS: Dual lead left subclavian cardiac pacemaking device is noted in place. Cardiac silhouette is magnifie d by projection. Right lung apex is obscured due to kyphotic positioning and overlying mandible and jaw. There is suggestion of increased left perihilar interstitial densities as well as patchy densiti es. This could be related to patient rotation and kyphotic positioning. However, infectious process cannot be excluded based on this exam. Right lung does appear clear. Remote right proximal humeral fr acture and deformity is partially imaged. Osteopenia is noted. IMPRESSION: Increased left perihilar interstitial and patchy parenchymal densities which could be related to infe ctious process. The patient is rotated and exam was obtained in kyphotic positioning which does accentuate the bronchovascular markings. Follow-up chest x-ray is recommended to ensure resolution.
[2019-10-31 21:24] LABS: ALT (SGPT) 18 U/L (8-55); AST (SGOT) 27 U/L (5-34); Alkaline Phosphatase 134 U/L (40-110); Anion Gap 14 mmol/L (10-20); BUN (Urea Nitrogen) 23 mg/dL (9.8-20.1); Bilirubin, Total 0.3 mg/dL (0.2-1.2); CK (CPK) 69 U/L (29-168); Calc. Creatinine Clearance 0 mL/min (70-130); Calcium 8.8 mg/dL (7.8-10.44); Carbon Dioxide 25 mmol/L (23-31); Chloride 99 mmol/L (98-107); Estimated GFR-MDRD 29; Globulin 4.7 g/dL (2.4-3.5); Glucose 83 mg/dL (80-115); Potassium 4.5 mmol/L (3.5-5.1); Protein, Total 7.7 g/dL (6.0-8.3); Sodium 133 mmol/L (136-145)
[2019-10-31 21:50] LABS: CKMB 3.3 ng/mL (0-6.6)
[2019-10-31] MEDS ORDERED: cefTRIAXone\\ROCEPHIN 1 GM VIAL ONE (22:03)
[2019-10-31] MEDS ORDERED: Aspirin Chewable 81 MG TAB ONE (22:03)
[2019-10-31] MEDS ORDERED: Azithromycin 500 MG VIAL ONE (22:03)
[2019-10-31 22:12] LABS: Bilirubin Negative (Negative); Blood, Urine Large (Negative); Glucose, Urine (Dipstick) Negative (Negative); Leukocyte Moderate (Negative); Nitrite Negative (Negative); Protein, Urine (Dipstick) 100 mg/dL (Neg-Trace)
[2019-10-31 22:14] LABS: Clarity Cloudy (Clear)
[2019-10-31 22:19] LABS: Bacteria/HPF 4+ HPF (None Seen); RBC/HPF 21-50 HPF (0-3); Squamous Epithelial 0-3 HPF (0-3); WBC/HPF Greater than 50 HPF (0-3)
[2019-10-31] MEDS ORDERED: Dextrose 5% in Water 1,000 ML IV PRN (23:38)
[2019-10-31] MEDS ORDERED: HumaLOG 300 UNITS/3 ML VIAL SC PRN (23:38)
[2019-10-31] MEDS ORDERED: Dextrose 50% Abboject 50 ML SYRINGE SLOW IVP PRN (23:38)
[2019-11-01 00:42] LABS: Critical Call Chem Troponin I RESULT DECREASING
[2019-11-01 01:00] LABS: CKMB 2.9 ng/mL (0-6.6)
--- NOTE | 2019-11-01 01:42 | HP ---
TIME OF ASSESSMENT: 2200 hours. CHIEF COMPLAINT: General weakness and decreased appetite. HISTORY OF PRESENT ILLNESS AND REVIEW OF SYSTEMS: This is a Maltese-speaking 64-year-old woman with known history of CKD, diabetes, hypertension, and bilateral BKA, who presents to the Emergency Department due to generalized weakness. The patient's family are concerned regarding the reduced appetite for the last several days and persistent cough. According to the patient, her lungs have sounded congested, but she is unable to bring up any phlegm. She denies having any fevers or chills. No hemoptysis. No chest pain. The patient reports having dysuria and has known history of frequent UTIs in the past. She has felt generally weak with reduced appetite for the last several days. Today, her noted she was lethargic and upon checking her glucose noted that she was hypoglycemic in the 50s. He gave her juice and it did bring up her glucose and she recovered. Family also report few episodes of diarrhea yesterday and today. This has resulted in diaper related dermatitis. She has had worsening skin breakdown on the right buttock compared to the left. ED COURSE: In the Emergency Department, the patient underwent an EKG which showed normal sinus rhythm with a rate of 84. She was noted to have an incomplete right bundle-branch block with no ST changes or T-wave abnormalities. She had laboratory studies done demonstrating an elevated white count of 16.9, hemoglobin of 10.2, hematocrit 32, and platelets 290. Sodium 133, potassium 4.5, BUN 23, creatinine , GFR 29, lactic acid 1.1, calcium 8.8, and magnesium LFTs unremarkable. Lipase normal at 4. Alkaline phosphatase 134. CK 69, CK-MB 3.3, and initial troponin elevated at 0.996. Urinalysis done showed 100 of protein, large blood, moderate leukocyte esterase, 21 to 50 red blood cells, greater than 50 white blood cells with 4+ bacteria. She had a chest x-ray done demonstrating an increased left perihilar interstitial and patchy parenchymal densities that were felt to be possibly related to infectious process. A followup chest x-ray was recommended due to rotated chest x-ray with kyphotic position. In the Emergency Department, she received 1 L of normal saline and was given a DuoNeb treatment. She was started on IV antibiotics with Rocephin and azithromycin. She was given 324 mg of aspirin. Another liter of normal saline was given in the ED. PAST MEDICAL HISTORY: 1. History of bradycardia, treated with pacemaker. 2. Diabetes mellitus. 3. Hyperlipidemia. 4. Hypertension. 5. History of CVA in 2002. 6. Residual left-sided deficits. 7. Kidney stones. PAST SURGICAL HISTORY: 1. 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 2. Pacemaker. 3. Left BKA. 4. x2. SOCIAL HISTORY: The patient lives with her family. She is wheelchair/bed bound. Lives with her . No alcohol consumption or tobacco use. No illicit drug use. ALLERGIES: NO KNOWN DRUG ALLERGIES. CURRENT MEDICATIONS: 1. Losartan. 2. Famotidine. 3. Clopidogrel. 4. Simvastatin. 5. Aspirin. 6. Amlodipine. 7. Probiotic. 8. Novolin. PHYSICAL EXAMINATION: GENERAL: The patient appears generally fatigued but in no acute distress. VITAL SIGNS: Temperature 98.8, pulse 84, blood pressure 122/66, respirations 18, and O2 saturation 95% on room air. HEENT: Normocephalic and atraumatic. Pupils are equal, round, and reactive to light. Sclerae without icterus. Oropharynx is clear. NECK: Supple. LUNGS: Notable for coarse breath sounds, reduced breath sounds at the bilateral bases with decreased inspiratory effort. ABDOMEN: Soft, obese, nontender, nondistended. Normoactive bowel sounds present. No guarding or rigidity. No renal angle tenderness. EXTREMITIES: Status post BKA bilaterally. No evidence of edema. NEUROLOGIC: Alert and oriented x3. No neuro deficits on exam. SKIN: Buttocks notable for diaper related dermatitis with some skin breakdown on the right buttock. INVESTIGATIONS: As mentioned above in HPI. IMPRESSION AND PLAN: Ms. Redman is a very pleasant 64-year-old woman, who is being admitted for management of the following. 1. Community-acquired pneumonia. Chest x-ray showed changes concerning for infectious process, and she does have a cough. Unable to bring up phlegm and has been swallowing it. Sputum cultures ordered. The patient is afebrile. We will check respiratory viral panel. We will continue IV antibiotics for pneumonia. CT chest ordered to further assess for suspected pneumonia. Continue to aspirate. 2. Urinary tract infection. The patient with dysuria and history of recurrent urinary tract infections. Urine culture requested. She has had urine positive for beta-hemolytic Streptococcus and Escherichia coli in May 2019. The patient on Rocephin and azithromycin for community-acquired pneumonia. Follow up on urine culture results. Rocephin will cover urinary tract infection for now. 3. Generalized weakness. Associated with decreased appetite. The patient was hypoglycemic today at home. Likely multifactorial in nature given underlying infection and acute kidney injury. Continue to monitor. The patient is feeling somewhat better. 4. Decreased appetite. We will consult dietitian. Monitor blood glucose. Initiate sliding scale and hold diabetes medications for now given reduced intake. 5. Hypertension. Monitor blood pressure and resume home medications once verified. 6. Elevated troponin. Troponin currently elevated at 0.996. The patient without any complaints of chest pain. We will continue to trend troponins. She was given aspirin in the Emergency Department. We will likely consult Cardiology. 7. Diarrhea. The patient reports having diarrhea x2 days, resulting in diaper associated dermatitis. We will obtain stool studies including Clostridium difficile. If normal, we will start patient on Imodium. Wound Care consulted for diaper related dermatitis. 8. Code status, full. Decision maker is her daughter, Anny Turner. Primary care physician, unknown. The patient's case was discussed with Dr. Henderson, who agrees with plan of care as described above. Job ID: [id number]
[2019-11-01 03:00] LABS: #Basophils 0.1 thou/uL (0.0-0.2); #Eosinphils 0.3 thou/uL (0.0-0.7); #Lymphocytes 3.4 thou/uL (1.20-3.40); #Monocytes 1.5 thou/uL (0.11-0.59); %Basophils 0.7 % (0.0-1.0); %Eosinophils 1.9 % (0.0-10.0); %Lymphocytes 19.6 % (21.0-51.0); %Monocytes 8.6 % (0.0-10.0); %Neutrophils 69.3 % (42.0-75.0); Hemoglobin 9.6 g/dL (12.0-16.0); Mean Corpuscular HGB CONC 31.9 g/dL (32.0-36.0); Mean Corpuscular Hemoglobin 28.4 pg (27.0-31.0); Mean Corpuscular Volume 89.1 fL (78.0-98.0); Mean Platelet Volume 8.4 fL (7.4-10.4); Platelet Count 233 thou/uL (130-400); Red Blood Cell (RBC) Count 3.37 mill/uL (4.20-5.40); White Blood Cell (WBC) Count 17.4 thou/uL (4.8-10.8)
[2019-11-01 03:19] LABS: Critical Call Chem Troponin I RESULT DECREASING
[2019-11-01 03:21] LABS: Anion Gap 12 mmol/L (10-20); BUN (Urea Nitrogen) 22 mg/dL (9.8-20.1); Calc. Creatinine Clearance 37 mL/min (70-130); Calcium 7.8 mg/dL (7.8-10.44); Carbon Dioxide 19 mmol/L (23-31); Chloride 108 mmol/L (98-107); Estimated GFR-MDRD 36; Glucose 90 mg/dL (80-115); Potassium 4.6 mmol/L (3.5-5.1); Sodium 134 mmol/L (136-145)
[2019-11-01] MEDS ORDERED: Atorvastatin Calcium 40 MG TAB PO SCH (07:30)
[2019-11-01] MEDS ORDERED: FLU VACC QS2019-20(6MOS UP)/PF 60 MCG/0.5 ML SYRINGE IM ONE (09:00)
[2019-11-01] MEDS ORDERED: Aspirin Chewable 81 MG TAB ONE (09:09)
[2019-11-01] MEDS ORDERED: Enoxaparin Sodium 60 MG/0.6 ML SYRINGE ONE (09:09)
[2019-11-01] MEDS: Aspirin 81 mg Enteric Coated Tablet PO SCH (09:30)
[2019-11-01] MEDS: Enoxaparin Sodium 60 MG/0.6 ML SYRINGE SC SCH ×2 (09:30→21:13)
[2019-11-01 09:33] LABS: Troponin I 0.598 ng/mL (< 0.028)
[2019-11-01] MEDS ORDERED: Azithromycin 500 MG VIAL ONE (09:57)
[2019-11-01] MEDS: Sodium Chloride 0.9% 1,000 ML IV SCH ×2 (10:08→21:13)
[2019-11-01] MEDS: Azithromycin 500 MG in Sodium Chloride 0.9% 250 ML 250 ML IVPB SCH (10:35)
--- NOTE | 2019-11-01 13:11 | ULT ---
BILATERAL LOWER EXTREMITY VENOUS DOPPLER ULTRASOUND: Date: 11/01/2019 HISTORY: Possible pulmonary embolism. Patient has bilateral [id number] amputations. TECHNIQUE: Rodriguez scale ultrasound with color flow and spectral Doppler imaging of the femoropopliteal systems per formed bilaterally. FINDINGS: There is good flow and compression noted in the common femoral, femoral, deep femoral, popliteal, and greater saphenous veins. IMPRESSION: No evidence of deep venous thrombosis in either lower extremity. POS: TPC
[2019-11-01] MEDS: Atorvastatin Calcium 40 MG TAB PO SCH (21:12)
[2019-11-01] MEDS: cefTRIAXone\\ROCEPHIN 1 GM in Sodium Chloride 0.9% 100 ML IVPB SCH (21:22)
--- NOTE | 2019-11-01 21:54 | PDOC.EVN ---
Event Note - Event Note Event Note: Received patient in AM. EKG showing S1Q3T3, RBBB of unknown duration. CTPE aborted due to GFR 29. started on treatment for PE/NSTEMI based on Well's score that is at least intermediate based on limited history and presentation after confirmted no contraindication for anticoagulation.
[2019-11-02 05:16] LABS: Hemoglobin 9.4 g/dL (12.0-16.0); Mean Corpuscular HGB CONC 31.4 g/dL (32.0-36.0); Mean Corpuscular Hemoglobin 28.7 pg (27.0-31.0); Mean Corpuscular Volume 91.4 fL (78.0-98.0); Mean Platelet Volume 8.6 fL (7.4-10.4); Platelet Count 258 thou/uL (130-400); RBC Distribution Width 14.1 % (11.5-14.5); Red Blood Cell (RBC) Count 3.28 mill/uL (4.20-5.40); White Blood Cell (WBC) Count 12.2 thou/uL (4.8-10.8)
[2019-11-02 05:17] LABS: Anion Gap 13 mmol/L (10-20); BUN (Urea Nitrogen) 15 mg/dL (9.8-20.1); Calc. Creatinine Clearance 51 mL/min (70-130); Calcium 8.4 mg/dL (7.8-10.44); Carbon Dioxide 19 mmol/L (23-31); Chloride 108 mmol/L (98-107); Estimated GFR-MDRD 46; Glucose 168 mg/dL (80-115); Magnesium 1.7 mg/dL (1.6-2.6); Potassium 5.2 mmol/L (3.5-5.1); Sodium 135 mmol/L (136-145)
[2019-11-02 06:59] LABS: #Eosinphils 0.3 thou/uL (0.0-0.7); #Lymphocytes 2.3 thou/uL (1.20-3.40); #Monocytes 0.9 thou/uL (0.11-0.59); #Neutrophils 8.6 thou/uL (1.40-6.50); %Basophils 0.1 % (0.0-1.0); %Eosinophils 2.6 % (0.0-10.0); %Lymphocytes 18.9 % (21.0-51.0); %Monocytes 7.7 % (0.0-10.0); %Neutrophils 70.8 % (42.0-75.0); MDiff Complete? YES; Platelet Morphology Comment Appears Adequate; RBC Morphology Normal
[2019-11-02] MEDS: Sodium Chloride 0.9% 1,000 ML IV SCH ×3 (07:41→18:20)
[2019-11-02] MEDS ORDERED: Famotidine 20 MG TAB PO SCH (09:00)
[2019-11-02] MEDS ORDERED: Clopidogrel Bisulfate 75 MG TAB PO SCH (09:00)
[2019-11-02] MEDS ORDERED: Acetaminophen/Codeine 30-300mg Tablet PO PRN (09:23)
[2019-11-02] MEDS: Amlodipine 5 MG TAB PO SCH (10:20)
[2019-11-02] MEDS: Azithromycin 500 MG in Sodium Chloride 0.9% 250 ML 250 ML IVPB SCH (10:21)
[2019-11-02] MEDS: Famotidine 20 MG TAB PO SCH (10:21)
[2019-11-02] MEDS: Aspirin 81 mg Enteric Coated Tablet PO SCH (10:21)
[2019-11-02] MEDS: Enoxaparin Sodium 60 MG/0.6 ML SYRINGE SC SCH ×2 (10:21→21:18)
[2019-11-02 12:19] VITALS: BMI 23.3
[2019-11-02] MEDS: HumaLOG 300 UNITS/3 ML VIAL SC PRN ×2 (12:19→18:20)
--- NOTE | 2019-11-02 13:44 | CON ---
DATE OF CONSULTATION: 11/02/2019 REASON FOR CONSULTATION: Elevated troponin. PRIMARY INSPECTOR SHEET METAL PARTS: None. HISTORY OF PRESENT ILLNESS: Ms. Redman is a 64-year-old woman with past medical history of cardiomyopathy. She has a previous ICD placed. She states she does not follow routinely with a training and development officer, but does follow routinely with EP. She re-presented with decreased appetite. No chest pain, pressure, or shortness of breath noted. She was subsequently admitted due to elevated troponin and pneumonia. Her LVEF on recent echo dated 11/01/2019, showed LVEF 55% to 60% with mild concentric LVH. PAST MEDICAL HISTORY: Diabetes mellitus, hypertension, chronic kidney disease, CVA, PAD, status post pacemaker, , right and left BKA. FAMILY HISTORY: Negative for CAD. SOCIAL HISTORY: No current tobacco or alcohol use. REVIEW OF SYSTEMS: A 10-point review of systems is reviewed and as above, otherwise negative. PHYSICAL EXAMINATION: GENERAL: Patient is a pleasant woman who is in no acute distress. She does appear older stated age. VITAL SIGNS: Blood pressure 105/45, pulse 85, temperature 98. NEUROLOGIC: The patient is alert and oriented x3 with no focal neurologic deficits. HEENT: Sclerae without icterus. Mouth has moist mucous membranes with normal pallor. NECK: No JVD. Carotid upstroke brisk. No bruits bilaterally. LUNGS: Clear to auscultation with unlabored respirations. BACK: No scoliosis or kyphosis. CARDIAC: Regular rate and rhythm with normal S1 and S2. No S3 or S4 noted. No significant rubs, murmurs, thrills, or gallops noted throughout the precordium. PMI is not displaced. There is no parasternal heave. ABDOMEN: Soft, nontender, nondistended. No peritoneal signs present. No hepatosplenomegaly. No abnormal striae. EXTREMITIES: Bilateral BKA. SKIN: No gross abnormalities. PERTINENT LABORATORY DATA: Peak troponin 0.9, CK-MB negative x2. Sodium 135. Initial creatinine 1.76 with a GFR less than 30, now down to 1.18. Hemoglobin 9.4. Chest x-ray dated 10/31/2019, left perihilar interstitial and patchy densities suggesting pneumonia. Pacemaker implant 01/09/2011 with four and half years estimated longevity. A-sensed V-paced 92% of the time, A-paced V-sensed 6.8%. No significant dysrhythmias present. IMPRESSION: 1. Elevated troponin. 2. Pneumonia. 3. Decreased appetite. 4. Status post pacemaker. RECOMMENDATIONS: Ms. Redman has elevated troponin secondary to demand ischemia from recent insult. Her CK-MB are both negative suggesting a previous event. Her LVEF does appear normal. This may also be related to LVH. At this point, we would recommend conservative therapy given normal LVEF and no symptoms suggesting angina. We will continue aspirin in addition to atorvastatin. Add beta-luigi therapy. We will add Coreg 3.125 one p.o. b.i.d. Discontinue Lovenox in a.m. Avoid ARB and JULI inhibitor therapy due to chronic kidney disease. Otherwise, I have no further recommendations. Job ID: [id number]
[2019-11-02] MEDS ORDERED: Carvedilol 6.25 MG TAB PO SCH (21:00)
--- NOTE | 2019-11-02 21:14 | PDOC.HOSPP ---
- Subjective Encounter Date: 11/02/19 Encounter Time: 09:00 Subjective: no overnight events. This morning, feeling well and has no complaints. . - Objective Vital Signs & Weight: Vital Signs (12 hours) Temp Pulse Resp BP Pulse Ox 11/02/19 16:01 97.7 F 76 21 H 147/63 H 91 L 11/02/19 11:36 98.4 F 83 15 105/45 L 93 L Weight Admit Weight 130 lb 1.164 oz Weight 132 lb 1.6 oz I&O: 11/01/19 11/02/19 11/03/19 06:59 06:59 06:59 Intake Total 1100 1100 1720 Output Total 400 1800 Balance 1100 700 -80 Result Diagrams: 11/02/19 04:20 11/02/19 04:20 Additional Labs: Accuchecks 11/02/19 11/02/19 11/02/19 20:32 17:06 10:41 POC Glucose 221 H 201 H 243 H 11/02/19 11/01/19 05:50 21:00 POC Glucose 184 H 176 H Hospitalist ROS - Review of Systems Constitutional: denies: fever, chills, sweats, weakness, malaise, other Cardiovascular: denies: chest pain, palpitations, orthopnea, paroxysmal noc. dyspnea, edema, light headedness Gastrointestinal: denies: nausea, vomiting, abdominal pain Genitourinary: denies: dysuria, frequency, hematuria Neurological: denies: weakness, numbness, incoordination - Medication Medications: Active Medications Generic Name Dose Route Start Last Admin Trade Name Freq PRN Reason Stop Dose Admin Acetaminophen/Codeine Phosphate 1 tab 11/02/19 09:23 11/02/19 10:21 Tylenol #3 PO 1 tab Q6H PRN Administration Pain Amlodipine Besylate 5 mg 11/02/19 09:00 11/02/19 10:20 Norvasc PO 5 mg DAILY OCTAVIO Administration Aspirin 81 mg 11/01/19 09:00 11/02/19 10:21 Ecotrin PO 81 mg DAILY OCTAVIO Administration Atorvastatin Calcium 40 mg 11/01/19 21:00 11/01/19 21:12 Lipitor PO 40 mg HS OCTAVIO Administration Enoxaparin Sodium 60 mg 11/01/19 09:00 11/02/19 10:21 Lovenox SC 60 mg 0900,2100 OCTAVIO Administration Famotidine 20 mg 11/02/19 09:00 11/02/19 10:21 Pepcid PO 20 mg DAILY OCTAVIO Administration Azithromycin 500 mg/ Sodium 250 mls @ 250 mls/hr 11/01/19 10:30 11/02/19 10: 21 Chloride IVPB 250 mls 1030 OCTAVIO Administration Ceftriaxone Sodium 1 gm/ 100 mls @ 200 mls/hr 11/01/19 22:00 11/01/19 21:22 Sodium Chloride IVPB 100 mls 2200 OCTAVIO Administration Sodium Chloride 1,000 mls @ 100 mls/hr 11/02/19 18:00 11/02/19 18:20 Normal Saline 0.9% IV 1,000 mls .Q10H OCTAVIO Administration Insulin Human Lispro 0 units 10/31/19 23:38 11/02/19 18:20 Humalog SC 3 unit .MILD SLIDING SCALE PRN Administration Mild Correctional Scale - Exam General Appearance: NAD, awake alert Neck: no JVD Heart: RRR, no murmur, no gallops, no rubs Respiratory: CTAB, no wheezes Gastrointestinal: soft, non-tender, non-distended, normal bowel sounds Extremities: no edema Psychiatric: normal affect, normal behavior, A&O x 3 Hosp A/P - Plan #NSTEMI per cardiology, demand ishcemia due to previous insult -will discontinue lovenox -rest of management as per cardiology #CAP #UTI -UCx growing e.coli -continue azithromycin, ceftriaxone rest of management unchanged
[2019-11-02] MEDS: cefTRIAXone\\ROCEPHIN 1 GM in Sodium Chloride 0.9% 100 ML IVPB SCH (21:18)
[2019-11-02] MEDS: Carvedilol 3.125 MG TAB PO SCH (21:20)
[2019-11-02] MEDS: Atorvastatin Calcium 40 MG TAB PO SCH (21:20)
[2019-11-03] MEDS: Sodium Chloride 0.9% 1,000 ML IV SCH (04:38)
[2019-11-03 05:06] LABS: Anion Gap 13 mmol/L (10-20); BUN (Urea Nitrogen) 10 mg/dL (9.8-20.1); Calc. Creatinine Clearance 56 mL/min (70-130); Calcium 7.9 mg/dL (7.8-10.44); Carbon Dioxide 18 mmol/L (23-31); Chloride 106 mmol/L (98-107); Estimated GFR-MDRD 58; Glucose 192 mg/dL (80-115); Magnesium 1.5 mg/dL (1.6-2.6); Sodium 132 mmol/L (136-145)
[2019-11-03] MEDS ORDERED: Magnesium Oxide 400 MG TAB PO SCH (08:00)
[2019-11-03] MEDS ORDERED: Losartan 25 MG TAB PO SCH (09:00)
[2019-11-03] MEDS: Aspirin 81 mg Enteric Coated Tablet PO SCH (09:10)
[2019-11-03] MEDS: Carvedilol 3.125 MG TAB PO SCH (09:10)
[2019-11-03] MEDS: Amlodipine 5 MG TAB PO SCH (09:10)
[2019-11-03] MEDS: Famotidine 20 MG TAB PO SCH (09:11)
[2019-11-03] MEDS: Azithromycin 500 MG in Sodium Chloride 0.9% 250 ML 250 ML IVPB SCH ×3 (09:16→13:54)
[2019-11-03 11:12] VITALS: TEMP 98.2
[2019-11-03] MEDS: HumaLOG 300 UNITS/3 ML VIAL SC PRN (11:12)
[2019-11-03 15:32] VITALS: BP 130/61
--- NOTE | 2019-11-04 10:58 | PQF ---
Faustina eRdman ADI [id number] CLINICAL DOCUMENTATION CLARIFICATION FORM: POST DISCHARGE Addendum to original discharge summary date: ____ Late entry note date: __ DATE:11/04/2019 ATTN: IWONA WAHL Please exercise your independent, professional judgment in responding to the clarification form. Clinical indicators are provided on the bottom of this form for your review Please check appropriate box(s) to clarify if the following diagnosis has been ruled in or ruled out: NSTEMI [ x ] Ruled in diagnosis [ ] Continue to treat [ ] Resolved [ ] Ruled out diagnosis [ ] Cannot rule out diagnosis If ruled in kindly specify NSTEMI type [ ] NSTEMI type I [ ] NSTEMI type II [ x ] Other diagnosis NSTEMI type II per Cardiology [ ] Unable to determine For continuity of documentation, please document condition throughout progress notes and discharge summary. Thank You. CLINICAL INDICATORS - SIGNS / SYMPTOMS / LABS NSTEMI -Documented in hospitalist progress note on 11/01 by Iwona Wahl MD Per cardiology , demand ischemia due to previous insult-Documented in hospitalist progress note on 11/01 by Iwona Wahl MD CAP-Documented in hospitalist progress note on 11/01 by Iwona Wahl MD UTI-Documented in hospitalist progress note on 11/01 by Iwona Wahl MD Elevated troponin-Documented in consultation report on 11/01 by Rell Darden MD Elevated troponin secondary to demand ischemia from recent insult-Documented in consultation report on 11/01 by Rell Darden MD Her CK-MB are both has negative suggesting a previous event, Her LVEF dose appear noral-Documented in consultation report on 11/01 by Rell Darden MD Peak troponin-0.9-Documented in consultation report on 11/01 by Rell Darden MD RISK FACTORS Elevated troponin secondary to demand ischemia from recent insult-Documented in consultation report on 11/01 by Rell Darden MD TREATMENTS We will continue aspirin in addition to atorvastatin, add beta-luigi therapy , we will add coreg 3.125 one p.o. b.i.d-Documented in consultation report on by Rell Darden MD [employer] (This form is maintained as a part of the permanent medical record) 2014 [employer]. All Rights Reserved [email or web address] [phone] [email or web address]
[2019-11-04] MEDS ORDERED: Azithromycin 500 MG in Sodium Chloride 0.9% 250 ML 250 ML IVPB SCH (14:00)
--- NOTE | 2019-11-04 15:11 | DIS ---
DATE OF ADMISSION: 10/31/2019 DATE OF DISCHARGE: 11/03/2019 Ms. Redman is a 64-year-old woman with a medical history of CKD, diabetes type 2, hypertension, and bilateral [id number]-[id number] amputation, who presented to the Emergency Department due to generalized weakness. She was found to have a significantly elevated troponin as well as urinary tract infection. The patient was started on anticoagulation and Cardiology was consulted. Per Cardiology, the patient most likely had elevated troponin due to demand ischemia, so anticoagulation was stopped; however, she was continued on aspirin and pravastatin as well as beta luigi, and per Cardiology, ARB and JULI inhibitors were discontinued due to CKD. In addition to the aforementioned diagnosis, the patient also presented with symptoms of pneumonia and her urine culture grew E. coli. She was started on antibiotic treatment during inpatient stay, which was resumed with home medications based on culture susceptibilities. On the day of discharge, the patient was feeling well and had no complaints. She was discharged home and we attempted to make to schedule followup appointments with the patient's lack of insurance. Job ID: [id number]
--- NOTE | 2019-11-05 18:22 | EKG ---
Test Reason : EMERGENCY Blood Pressure : / mmHG Vent. Rate : 084 BPM Atrial Rate : 084 BPM P-R Int : 158 ms QRS Dur : 126 ms QT Int : 422 ms P-R-T Axes : 015 -87 -09 degrees QTc Int : 498 ms Normal sinus rhythm Left axis deviation Right bundle branch block Abnormal ECG Confirmed by MINOO ISRAEL ([id number]), non linear editor FANI CRUZ ([id number]) on 11/05/2019 6:22:21 PM Referred By: Confirmed By:MINOO ISRAEL
--- NOTE | 2019-11-06 23:29 | PQF ---
Feroz Faustina BROOKSLEIGH ANN, IWONA [id number] CLINICAL DOCUMENTATION CLARIFICATION FORM: POST DISCHARGE Addendum to original discharge summary date: ____ Late entry note date: __ Date:11/06/2019 ATTN:IWONA SMITH Please exercise your independent, professional judgment in responding to the clarification form. Clinical indicators are provided on the bottom of this form for your review Please check appropriate box(s): [ x ] Protein Calorie Malnutrition: [ x ] Mild [ ] Moderate [ ] Severe [ ] Other Malnutrition (please specify) __ [ ] Underweight without malnutrition [ ] Cachexia [ ] Other diagnosis [ ] Unable to determine In addition, please specify: Present on Admission (POA): [ x ] Yes [ ] No [ ] Unable to determine CLINICAL INDICATORS - SIGNS / SYMPTOMS / LABS General weakness and decreased appetite-Documented in H&P on 10/30 by Georgie Brown PA-C Decreased appetite-Documented in H&P on 10/30 by Georgie Brown PA-C Diarrhea-Documented in H&P on 10/30 by Georgie Brown PA-C BMI-23.3-Documented in [facility] Assessment Patient report of decreased PO intake x2-3 days -Documented in [facility] Assessment RISK FACTORS General weakness and decreased appetite-Documented in H&P on 10/30 by Georgie Brown PA-C Decreased appetite-Documented in H&P on 10/30 by Georgie Brown PA-C TREATMENT: We will consult dietitian--Documented in H&P on 10/30 by Georgie Brown PA-C General healthful diet, Modify meals /snacks suppl comm beverage-Documented in FNS Assessment recommend a consistent carb (1800 francisco )/Low potassium diet , levaing off heart- Documented in [facility] Assessment Healthy/renal- protein high diets to limit restrictions-Documented in [facility] Assessment Recommend suplena once daily-Documented in [facility] Assessment Moderate Malnutrition (in acute illness) Energy Intake: <75% of estimated energy requirement for > 7 days Weight Loss: 1-2%/1 week; 5%/ 1 month; 7.5%/3 months Other: mild body fat loss; mild muscle mass loss; mild fluid accumulation; Severe Malnutrition (in acute illness) Energy Intake: < 50% of estimated energy requirement for > 5 days Weight Loss: >1-2%/1 week; >5%/1 month; >7.5%/3 months Other: moderate body fat loss; moderate muscle mass loss; moderate- severe fluid accumulation; measurably reduced garment examiner strength Moderate Malnutrition (in chronic illness) Energy Intake: <75% of estimated energy requirement for >1 month Weight Loss: 5%/1 month; 7.5%/3 months; 10%/6 months; 20%/1 year Other: mild body fat loss; mild muscle mass loss; mild fluid accumulation Severe Malnutrition (in chronic illness) Energy Intake: <75% of estimated energy requirement for >1 month Weight Loss: >5%/1 month; >7.5%/3 months; >10%/6 months; >20%/1 year Other: severe body fat loss; severe muscle mass loss; severe fluid accumulation ; measurably reduced garment examiner strength [employer] Win[employer] (This form is maintained as a part of the permanent medical record) 2014 [employer]. All Rights Reserved [email or web address] [phone] LAURENT
--- NOTE | 2019-11-08 22:46 | PQF ---
RedmanFaustina frenchLEIGH ANN, IWONA [id number] CLINICAL DOCUMENTATION CLARIFICATION FORM: POST DISCHARGE Addendum to original discharge summary date: ____ Late entry note date: __ DATE:11/08/2019 ATTN:IWONA SMITH Please exercise your independent, professional judgment in responding to the clarification form. Clinical indicators are provided on the bottom of this form for your review Please check appropriate box(s) to clarify if the following diagnosis has been ruled in or ruled out: Sepsis [ x ] Ruled in diagnosis [ ] Continue to treat [ x ] Resolved [ ] Ruled out diagnosis [ ] Cannot rule out diagnosis [ ] Other diagnosis [ ] Unable to determine For continuity of documentation, please document condition throughout progress notes and discharge summary. Thank You. CLINICAL INDICATORS - SIGNS / SYMPTOMS / LABS Sepsis w/o septic shock likely due to bibasilar L>R PNA.-Documented in ED on by Garo Kumar [id number] in ED on 10/30 by Garo Kumar FREDA-Documented in ED on 10/30 by Garo Kumar General weakness-Documented in H&P on 10/30 by Georgie Brown Community acquired pneumonia-Documented in H&P on 10/30 by Georgie Brown UTI-Documented in H&P on 10/30 by Georgie Brown WBC-17.4-Documented in Laboratory RISK FACTORS Community acquired pneumonia-Documented in H&P on 10/30 by Georgie Brown UTI-Documented in H&P on 10/30 by Georgie Brown TREATMENTS Rocephin 1 gm IV-Medication snapshot Zithromax 500 mg -Medication snapshot [employer] Win[employer] Viewer (This form is maintained as a part of the permanent medical record) 2014 [email or web address] All Rights Reserved [email or web address] [phone] [email or web address]
== END 2019-11-03 17:40 | disposition home or self-care (01) | DRG 871 ==
LOC: ERS 20:32 → ERHOLD 22:23 → 2NO 11-01 14:13
PROVIDERS: ADMIT Internal Medicine; ATTEND Internal Medicine
DX: A41.9 Sepsis, unspecified organism (principal); J18.9 Pneumonia, unspecified organism; I21.A1 Myocardial infarction type 2; N39.0 Urinary tract infection, site not specified; N17.9 Acute kidney failure, unspecified; I42.9 Cardiomyopathy, unspecified; I69.354 Hemiplegia and hemiparesis following cerebral infarction affecting left non-dominant side; E44.1 Mild protein-calorie malnutrition; R19.7 Diarrhea, unspecified; L30.9 Dermatitis, unspecified; Z95.810 Presence of automatic (implantable) cardiac defibrillator; E78.5 Hyperlipidemia, unspecified; Z87.442 Personal history of urinary calculi; Z89.512 Acquired absence of left leg below knee; Z89.511 Acquired absence of right leg below knee; Z99.3 Dependence on wheelchair; Z68.24 Body mass index [BMI] 24.0-24.9, adult; E11.9 Type 2 diabetes mellitus without complications; R40.2412 Glasgow coma scale score 13-15, at arrival to emergency department; I12.9 Hypertensive chronic kidney disease with stage 1 through stage 4 chronic kidney disease, or unspecified chronic kidney disease; N18.9 Chronic kidney disease, unspecified; I45.10 Unspecified right bundle-branch block
CPT/HCPCS: 36415; 36416; 51701; 71045; 80048; 80053; 81003; 81015; 82550; 82553; 83605; 83690; 83735; 83880; 84484; 85025; 87040; 87077; 87086; 87149; 87186; 87633; 87804; 93005; 93306; 93970; 96365; 96375; J0456; J0696; J1650; J3490; J7050; J7620

== ENCOUNTER 2022-02-05 14:10 | Inpatient (IN) | payer MEDICAID, SELFPAY ==
[2022-02-05 15:18] LABS: #Eosinphils 0.2 thou/uL (0.0-0.7); #Lymphocytes 1.8 thou/uL (1.20-3.40); #Monocytes 0.9 thou/uL (0.11-0.59); #Neutrophils 8.9 thou/uL (1.40-6.50); %Basophils 0.3 % (0.0-1.0); %Eosinophils 1.3 % (0.0-10.0); %Lymphocytes 15.2 % (21.0-51.0); %Monocytes 7.7 % (0.0-10.0); %Neutrophils 75.5 % (42.0-75.0); Hemoglobin 7.7 g/dL (12.0-16.0); Mean Corpuscular HGB CONC 32.2 g/dL (32.0-36.0); Mean Corpuscular Hemoglobin 27.7 pg (27.0-31.0); Mean Platelet Volume 8.2 fL (7.4-10.4); Platelet Count 251 thou/uL (130-400); RBC Distribution Width 13.3 % (11.5-14.5); Red Blood Cell (RBC) Count 2.77 mill/uL (4.20-5.40); White Blood Cell (WBC) Count 11.7 thou/uL (4.8-10.8)
[2022-02-05 15:42] LABS: ALT (SGPT) 22 U/L (8-55); AST (SGOT) 24 U/L (5-34); Albumin 2.7 g/dL (3.4-4.8); Alkaline Phosphatase 96 U/L (40-110); Anion Gap 14 mmol/L (10-20); BUN (Urea Nitrogen) 88 mg/dL (9.8-20.1); Bilirubin, Total 0.4 mg/dL (0.2-1.2); Calc. Creatinine Clearance 0 mL/min (70-130); Carbon Dioxide 14 mmol/L (23-31); Chloride 100 mmol/L (98-107); Globulin 4.6 g/dL (2.4-3.5); Glucose 129 mg/dL (80-115); Potassium 5.4 mmol/L (3.5-5.1); Protein, Total 7.3 g/dL (5.8-8.1); Sodium 123 mmol/L (136-145)
[2022-02-05 15:59] LABS: Clarity Turbid (Clear); Leukocyte Large (Negative); Nitrite Negative (Negative); Specific Gravity, Urine 1.012 (1.002-1.036); pH, Urine 8.5 (5.0-9.0)
[2022-02-05 16:00] LABS: Bilirubin Negative (Negative); Blood, Urine Large (Negative); Glucose, Urine (Dipstick) Negative (Negative); Ketone, Urine Negative (Negative); Protein, Urine (Dipstick) 100 mg/dL (Neg-Trace); Urobilinogen 0.2 mg/dL (Less than 2)
[2022-02-05 16:01] LABS: Bacteria/HPF 4+ HPF (None Seen); RBC/HPF Greater than 50 HPF (0-3); Squamous Epithelial 0-3 HPF (0-3); WBC/HPF 21-50 HPF (0-3)
[2022-02-05 16:02] LABS: Triple Phosphate Crystal 1+ HPF (None Seen)
[2022-02-05] MEDS ORDERED: CEFAZOLIN 2 GM VIAL ONE (16:18)
[2022-02-05] MEDS ORDERED: CEFAZOLIN 1 GM VIAL ONE (16:24)
[2022-02-05] MEDS ORDERED: cefTRIAXone\\ROCEPHIN 1 GM VIAL ONE (16:28)
[2022-02-05] MEDS ORDERED: Ondansetron PF 4 MG/2 ML Vial IVP PRN (17:55)
[2022-02-05] MEDS ORDERED: Dextrose 50% Abboject 50 ML SYRINGE SLOW IVP PRN (17:55)
[2022-02-05] MEDS ORDERED: Bisacodyl 10 MG SUPP PR PRN (17:55)
[2022-02-05] MEDS ORDERED: Acetaminophen 650 MG Suppository PR PRN (17:55)
[2022-02-05] MEDS ORDERED: Dextrose 5% in Water 1,000 ML IV PRN (17:55)
[2022-02-05 18:37] LABS: SARS-CoV-2 NAA Rapid Test Not Detected (NotDetected)
[2022-02-05] MEDS ORDERED: Morphine 2 MG/ML VIAL SLOW IVP PRN (18:49)
[2022-02-05] MEDS ORDERED: Cyclobenzaprine 10 MG TAB PO PRN (19:17)
[2022-02-05] MEDS ORDERED: Iopamidol 15 ML ONE (20:05)
[2022-02-05] MEDS ORDERED: Vancomycin HCl 500 MG VIAL ONE (20:28)
[2022-02-05] MEDS ORDERED: fentaNYL Citrate/PF 100 MCG/2 ML SYRINGE ONE ×2 (20:30→21:40)
[2022-02-05] MEDS ORDERED: PHENYLEPHRINE-NS 100 MCG/ML 10 ML SYRINGE ONE ×2 (20:34→21:22)
[2022-02-05] MEDS ORDERED: Lidocaine 1% PF 5 ML VIAL ONE (20:34)
[2022-02-05] MEDS ORDERED: PROPOFOL 200 MG/20 ML VIAL ONE (20:34)
[2022-02-05] MEDS ORDERED: Rocuronium Bromide 10 MG/ML (10ML VIAL) ONE (20:34)
[2022-02-05] MEDS ORDERED: Pantoprazole 40 MG VIAL IVP SCH (21:00)
[2022-02-05] MEDS ORDERED: Famotidine/PF 20 mg/2ml Vial SLOW IVP SCH (21:00)
[2022-02-05] MEDS ORDERED: Cefepime 2 GM in Sodium Chloride 0.9% 100 ML IVPB SCH (21:00)
[2022-02-05] MEDS ORDERED: SUGAMMADEX SODIUM 200 MG/2 ML VIAL ONE (21:08)
[2022-02-05] MEDS ORDERED: Phenylephrine 10 MG/ML VIAL ONE (21:21)
[2022-02-05] MEDS ORDERED: Promethazine HCl 25 MG/ML VIAL IM PRN (21:25)
[2022-02-05] MEDS ORDERED: Ondansetron HCl/PF 4 MG/2 ML Vial IVP PRN (21:25)
[2022-02-05] MEDS ORDERED: Promethazine HCl 25 MG/ML VIAL IVPB PRN (21:25)
[2022-02-05] MEDS ORDERED: Sodium Chloride 0.9% 500 ML IV SCH (22:15)
[2022-02-05] MEDS: Sodium Chloride 0.9% 1,000 ML IV SCH (22:40)
[2022-02-05 22:44] LABS: #Eosinphils 0.2 thou/uL (0.0-0.7); #Lymphocytes 1.7 thou/uL (1.20-3.40); #Monocytes 0.8 thou/uL (0.11-0.59); #Neutrophils 10.9 thou/uL (1.40-6.50); %Basophils 0.1 % (0.0-1.0); %Eosinophils 1.1 % (0.0-10.0); %Lymphocytes 12.6 % (21.0-51.0); %Monocytes 5.7 % (0.0-10.0); %Neutrophils 80.4 % (42.0-75.0); Hemoglobin 7.1 g/dL (12.0-16.0); Mean Corpuscular Volume 87.7 fL (78.0-98.0); Mean Platelet Volume 7.8 fL (7.4-10.4); Platelet Count 235 thou/uL (130-400); RBC Distribution Width 13.5 % (11.5-14.5); Red Blood Cell (RBC) Count 2.54 mill/uL (4.20-5.40); White Blood Cell (WBC) Count 13.6 thou/uL (4.8-10.8)
[2022-02-05 23:03] LABS: ALT (SGPT) 23 U/L (8-55); AST (SGOT) 28 U/L (5-34); Albumin 2.5 g/dL (3.4-4.8); Alkaline Phosphatase 97 U/L (40-110); Anion Gap 13 mmol/L (10-20); BUN (Urea Nitrogen) 83 mg/dL (9.8-20.1); Bilirubin, Total 0.3 mg/dL (0.2-1.2); Calc. Creatinine Clearance 0 mL/min (70-130); Calcium 7.4 mg/dL (7.8-10.44); Carbon Dioxide 12 mmol/L (23-31); Chloride 105 mmol/L (98-107); Globulin 4.3 g/dL (2.4-3.5); Glucose 143 mg/dL (80-115); Potassium 5.3 mmol/L (3.5-5.1); Protein, Total 6.8 g/dL (5.8-8.1); Sodium 125 mmol/L (136-145)
[2022-02-05] MEDS: Cefepime 1 GM in Sodium Chloride 0.9% 100 ML IVPB SCH (23:57)
[2022-02-06 05:44] LABS: #Lymphocytes 1.2 thou/uL (1.20-3.40); #Monocytes 0.5 thou/uL (0.11-0.59); #Neutrophils 13.1 thou/uL (1.40-6.50); %Eosinophils 0.2 % (0.0-10.0); %Lymphocytes 8.1 % (21.0-51.0); %Monocytes 3.4 % (0.0-10.0); %Neutrophils 88.2 % (42.0-75.0); Hemoglobin 7.3 g/dL (12.0-16.0); Mean Corpuscular Hemoglobin 27.8 pg (27.0-31.0); Mean Corpuscular Volume 86.7 fL (78.0-98.0); Platelet Count 245 thou/uL (130-400); RBC Distribution Width 13.4 % (11.5-14.5); Red Blood Cell (RBC) Count 2.64 mill/uL (4.20-5.40); White Blood Cell (WBC) Count 14.9 thou/uL (4.8-10.8)
[2022-02-06 05:53] LABS: Hemoglobin A1c 8.4 % (4.0-6.0)
[2022-02-06 06:12] LABS: ALT (SGPT) 20 U/L (8-55); AST (SGOT) 24 U/L (5-34); Albumin 2.5 g/dL (3.4-4.8); Alkaline Phosphatase 94 U/L (40-110); Anion Gap 14 mmol/L (10-20); BUN (Urea Nitrogen) 86 mg/dL (9.8-20.1); Bilirubin, Total 0.3 mg/dL (0.2-1.2); Calc. Creatinine Clearance 14 mL/min (70-130); Calcium 7.5 mg/dL (7.8-10.44); Carbon Dioxide 11 mmol/L (23-31); Chloride 108 mmol/L (98-107); Cholesterol 68 mg/dl (< 200 Desired); Globulin 4.5 g/dL (2.4-3.5); Glucose 149 mg/dL (80-115); HDL Cholesterol 23 mg/dL (>60 Neg Risk); LDL Cholesterol, Calculated 31 mg/dL; Potassium 5.8 mmol/L (3.5-5.1); Sodium 127 mmol/L (136-145); Triglycerides 72 mg/dL (Less than 150)
[2022-02-06] MEDS: Sodium Chloride 0.9% 1,000 ML IV SCH (09:12)
[2022-02-06] MEDS: Pantoprazole 40 MG VIAL IVP SCH (10:24)
[2022-02-06] MEDS: Sodium Bicarbonate 70 MEQ in Sodium Chloride 0.45% 1,000 ML IV SCH (12:00)
[2022-02-06] MEDS: Morphine 2 MG/ML VIAL SLOW IVP PRN ×2 (12:09→17:28)
[2022-02-06] MEDS: Cefepime 1 GM in Sodium Chloride 0.9% 100 ML IVPB SCH (17:28)
[2022-02-06] MEDS: Sodium Bicarbonate Tab 325 MG TAB PO SCH (21:22)
[2022-02-07] MEDS: Sodium Bicarbonate 70 MEQ in Sodium Chloride 0.45% 1,000 ML IV SCH ×2 (03:33→15:28)
[2022-02-07 07:34] LABS: #Eosinphils 0.1 thou/uL (0.0-0.7); #Lymphocytes 0.9 thou/uL (1.20-3.40); #Monocytes 0.5 thou/uL (0.11-0.59); #Neutrophils 9.6 thou/uL (1.40-6.50); %Eosinophils 0.6 % (0.0-10.0); %Lymphocytes 7.8 % (21.0-51.0); %Monocytes 4.5 % (0.0-10.0); %Neutrophils 87.1 % (42.0-75.0); Hemoglobin 7.5 g/dL (12.0-16.0); Mean Corpuscular HGB CONC 31.7 g/dL (32.0-36.0); Mean Corpuscular Hemoglobin 28.1 pg (27.0-31.0); Mean Corpuscular Volume 88.6 fL (78.0-98.0); Mean Platelet Volume 8.3 fL (7.4-10.4); Platelet Count 232 thou/uL (130-400); RBC Distribution Width 13.4 % (11.5-14.5); Red Blood Cell (RBC) Count 2.68 mill/uL (4.20-5.40)
[2022-02-07 07:54] LABS: Iron 16 ug/dL (50-170); Iron Binding Capacity, Total 80 mcg/dL (265-497)
[2022-02-07 07:57] LABS: Anion Gap 14 mmol/L (10-20); BUN (Urea Nitrogen) 67 mg/dL (9.8-20.1); Calc. Creatinine Clearance 16 mL/min (70-130); Calcium 7.5 mg/dL (7.8-10.44); Carbon Dioxide 17 mmol/L (23-31); Chloride 105 mmol/L (98-107); Glucose 137 mg/dL (80-115); Potassium 4.7 mmol/L (3.5-5.1); Sodium 131 mmol/L (136-145)
[2022-02-07] MEDS: Atorvastatin Calcium 10 MG TAB PO SCH (08:40)
[2022-02-07] MEDS: Sodium Bicarbonate Tab 325 MG TAB PO SCH ×2 (08:40→20:04)
[2022-02-07] MEDS: Pantoprazole 40 MG VIAL IVP SCH (08:40)
[2022-02-07] MEDS: Cefepime 1 GM in Sodium Chloride 0.9% 100 ML IVPB SCH (17:46)
[2022-02-08 06:53] LABS: #Basophils 0.1 thou/uL (0.0-0.2); #Eosinphils 0.1 thou/uL (0.0-0.7); #Lymphocytes 1.7 thou/uL (1.20-3.40); #Monocytes 0.8 thou/uL (0.11-0.59); #Neutrophils 8.5 thou/uL (1.40-6.50); %Basophils 0.5 % (0.0-1.0); %Eosinophils 1.2 % (0.0-10.0); %Lymphocytes 14.8 % (21.0-51.0); %Monocytes 7.1 % (0.0-10.0); %Neutrophils 76.4 % (42.0-75.0); Hemoglobin 6.8 g/dL (12.0-16.0); Mean Corpuscular HGB CONC 31.6 g/dL (32.0-36.0); Mean Corpuscular Volume 88.6 fL (78.0-98.0); Mean Platelet Volume 8.4 fL (7.4-10.4); Platelet Count 197 thou/uL (130-400); RBC Distribution Width 13.8 % (11.5-14.5); Red Blood Cell (RBC) Count 2.44 mill/uL (4.20-5.40); White Blood Cell (WBC) Count 11.1 thou/uL (4.8-10.8)
[2022-02-08] MEDS: Sodium Bicarbonate 70 MEQ in Sodium Chloride 0.45% 1,000 ML IV SCH (07:13)
[2022-02-08 07:17] LABS: Anion Gap 17 mmol/L (10-20); BUN (Urea Nitrogen) 60 mg/dL (9.8-20.1); Calc. Creatinine Clearance 16 mL/min (70-130); Calcium 7.2 mg/dL (7.8-10.44); Carbon Dioxide 14 mmol/L (23-31); Chloride 103 mmol/L (98-107); Glucose 177 mg/dL (80-115); Potassium 4.9 mmol/L (3.5-5.1); Sodium 129 mmol/L (136-145)
[2022-02-08] MEDS ORDERED: Prevnar 13-Val Conj/PF 0.5 ML SYRINGE IM ONE (09:00)
[2022-02-08] MEDS: Atorvastatin Calcium 10 MG TAB PO SCH (09:07)
[2022-02-08] MEDS: Pantoprazole 40 MG VIAL IVP SCH (09:07)
[2022-02-08] MEDS: Sodium Bicarbonate Tab 325 MG TAB PO SCH ×2 (09:07→20:52)
[2022-02-08] MEDS: Sodium Bicarbonate 150 MEQ in Dextrose 5% in Water 1,000 ML IV SCH (13:43)
[2022-02-08] MEDS: Cefepime 1 GM in Sodium Chloride 0.9% 100 ML IVPB SCH (17:58)
[2022-02-08] MEDS: HumaLOG 300 UNITS/3 ML VIAL SC PRN (21:49)
[2022-02-09] MEDS: Sodium Bicarbonate 150 MEQ in Dextrose 5% in Water 1,000 ML IV SCH ×2 (05:01→18:05)
[2022-02-09 08:01] LABS: #Eosinphils 0.1 thou/uL (0.0-0.7); #Lymphocytes 1.8 thou/uL (1.20-3.40); #Monocytes 0.9 thou/uL (0.11-0.59); #Neutrophils 10.4 thou/uL (1.40-6.50); %Basophils 0.2 % (0.0-1.0); %Lymphocytes 13.5 % (21.0-51.0); %Monocytes 6.7 % (0.0-10.0); %Neutrophils 78.7 % (42.0-75.0); Hemoglobin 8.7 g/dL (12.0-16.0); Mean Corpuscular HGB CONC 32.9 g/dL (32.0-36.0); Mean Corpuscular Hemoglobin 28.8 pg (27.0-31.0); Mean Corpuscular Volume 87.5 fL (78.0-98.0); Mean Platelet Volume 8.6 fL (7.4-10.4); Platelet Count 206 thou/uL (130-400); RBC Distribution Width 13.8 % (11.5-14.5); Red Blood Cell (RBC) Count 3.01 mill/uL (4.20-5.40); White Blood Cell (WBC) Count 13.3 thou/uL (4.8-10.8)
[2022-02-09 08:10] LABS: Anion Gap 17 mmol/L (10-20); BUN (Urea Nitrogen) 62 mg/dL (9.8-20.1); Calc. Creatinine Clearance 15 mL/min (70-130); Calcium 7.7 mg/dL (7.8-10.44); Carbon Dioxide 17 mmol/L (23-31); Chloride 102 mmol/L (98-107); Glucose 228 mg/dL (80-115); Potassium 4.8 mmol/L (3.5-5.1); Sodium 131 mmol/L (136-145)
[2022-02-09] MEDS: Atorvastatin Calcium 10 MG TAB PO SCH (08:50)
[2022-02-09] MEDS: Sodium Bicarbonate Tab 325 MG TAB PO SCH ×2 (08:50→20:22)
[2022-02-09] MEDS: Acetaminophen 325 MG TAB PO PRN (11:54)
[2022-02-09] MEDS: HumaLOG 300 UNITS/3 ML VIAL SC PRN ×2 (11:57→17:22)
[2022-02-09] MEDS: Cefepime 1 GM in Sodium Chloride 0.9% 100 ML IVPB SCH (18:04)
[2022-02-09] MEDS: Insulin Glargine 30 UNITS/0.3 ML VIAL SC SCH (20:21)
[2022-02-10] MEDS: Morphine 2 MG/ML VIAL SLOW IVP PRN (04:39)
[2022-02-10] MEDS: HumaLOG 300 UNITS/3 ML VIAL SC PRN ×3 (05:03→17:25)
[2022-02-10] MEDS: Acetaminophen 325 MG TAB PO PRN (08:33)
[2022-02-10] MEDS: Atorvastatin Calcium 10 MG TAB PO SCH (08:33)
[2022-02-10] MEDS: Sodium Bicarbonate Tab 325 MG TAB PO SCH ×2 (08:33→21:29)
[2022-02-10] MEDS: Sodium Bicarbonate 150 MEQ in Dextrose 5% in Water 1,000 ML IV SCH (09:58)
[2022-02-10] MEDS ORDERED: Lorazepam 2 MG/ML VIAL SLOW IVP PRN (11:50)
[2022-02-10] MEDS ORDERED: Furosemide 20 MG/2 ML VIAL SLOW IVP SCH (12:00)
[2022-02-10] MEDS: Lorazepam 2 MG/ML VIAL SLOW IVP PRN ×2 (12:11→21:42)
[2022-02-10] MEDS ORDERED: Insulin Glargine 30 UNITS/0.3 ML VIAL SC SCH (12:15)
[2022-02-10 13:21] LABS: #Eosinphils 0.1 thou/uL (0.0-0.7); #Lymphocytes 1.1 thou/uL (1.20-3.40); #Monocytes 0.7 thou/uL (0.11-0.59); #Neutrophils 10.5 thou/uL (1.40-6.50); %Eosinophils 0.7 % (0.0-10.0); %Lymphocytes 9.2 % (21.0-51.0); %Monocytes 5.5 % (0.0-10.0); %Neutrophils 84.6 % (42.0-75.0); Hemoglobin 8.4 g/dL (12.0-16.0); Mean Corpuscular HGB CONC 32.3 g/dL (32.0-36.0); Mean Corpuscular Hemoglobin 28.6 pg (27.0-31.0); Mean Corpuscular Volume 88.5 fL (78.0-98.0); Mean Platelet Volume 8.6 fL (7.4-10.4); Platelet Count 188 thou/uL (130-400); RBC Distribution Width 13.7 % (11.5-14.5); Red Blood Cell (RBC) Count 2.93 mill/uL (4.20-5.40); White Blood Cell (WBC) Count 12.5 thou/uL (4.8-10.8)
[2022-02-10 13:44] LABS: ALT (SGPT) 11 U/L (8-55); AST (SGOT) 19 U/L (5-34); Albumin 2.2 g/dL (3.4-4.8); Alkaline Phosphatase 80 U/L (40-110); Anion Gap 13 mmol/L (10-20); BUN (Urea Nitrogen) 49 mg/dL (9.8-20.1); Bilirubin, Total 0.4 mg/dL (0.2-1.2); Calc. Creatinine Clearance 17 mL/min (70-130); Calcium 7.3 mg/dL (7.8-10.44); Carbon Dioxide 28 mmol/L (23-31); Chloride 95 mmol/L (98-107); Globulin 4.1 g/dL (2.4-3.5); Glucose 356 mg/dL (80-115); Magnesium 1.2 mg/dL (1.6-2.6); Phosphorus 3.5 mg/dL (2.3-4.7); Potassium 3.5 mmol/L (3.5-5.1); Protein, Total 6.3 g/dL (5.8-8.1); Sodium 132 mmol/L (136-145)
[2022-02-10] MEDS: Cefepime 1 GM in Sodium Chloride 0.9% 100 ML IVPB SCH (18:40)
[2022-02-10] MEDS: Docusate 100 MG CAP PO SCH (21:29)
[2022-02-10] MEDS: Insulin Glargine 30 UNITS/0.3 ML VIAL SC SCH (21:30)
[2022-02-11 06:31] LABS: #Eosinphils 0.2 thou/uL (0.0-0.7); #Lymphocytes 1.8 thou/uL (1.20-3.40); #Neutrophils 9.4 thou/uL (1.40-6.50); %Basophils 0.2 % (0.0-1.0); %Eosinophils 1.9 % (0.0-10.0); %Lymphocytes 14.7 % (21.0-51.0); %Monocytes 7.8 % (0.0-10.0); %Neutrophils 75.4 % (42.0-75.0); Hemoglobin 8.5 g/dL (12.0-16.0); Mean Corpuscular HGB CONC 30.9 g/dL (32.0-36.0); Mean Corpuscular Hemoglobin 27.7 pg (27.0-31.0); Mean Corpuscular Volume 89.4 fL (78.0-98.0); Mean Platelet Volume 8.5 fL (7.4-10.4); Platelet Count 181 thou/uL (130-400); Red Blood Cell (RBC) Count 3.06 mill/uL (4.20-5.40); White Blood Cell (WBC) Count 12.5 thou/uL (4.8-10.8)
[2022-02-11 06:56] LABS: Anion Gap 13 mmol/L (10-20); BUN (Urea Nitrogen) 47 mg/dL (9.8-20.1); Calc. Creatinine Clearance 17 mL/min (70-130); Calcium 7.6 mg/dL (7.8-10.44); Carbon Dioxide 30 mmol/L (23-31); Chloride 95 mmol/L (98-107); Glucose 248 mg/dL (80-115); Magnesium 1.7 mg/dL (1.6-2.6); Potassium 3.6 mmol/L (3.5-5.1); Sodium 134 mmol/L (136-145)
[2022-02-11] MEDS: Atorvastatin Calcium 10 MG TAB PO SCH (09:55)
[2022-02-11] MEDS: Docusate 100 MG CAP PO SCH ×2 (09:55→21:57)
[2022-02-11] MEDS: Sodium Bicarbonate Tab 325 MG TAB PO SCH ×2 (09:55→21:57)
[2022-02-11] MEDS: Insulin Glargine 30 UNITS/0.3 ML VIAL SC SCH ×2 (09:55→21:57)
[2022-02-11] MEDS: Polyethylene Glycol 3350 17 GM Packet PO SCH (09:56)
[2022-02-11 10:29] VITALS: BMI 24.1
[2022-02-11] MEDS: HumaLOG 300 UNITS/3 ML VIAL SC PRN (13:15)
[2022-02-11] MEDS: Cefepime 1 GM in Sodium Chloride 0.9% 100 ML IVPB SCH (21:55)
[2022-02-12 04:41] LABS: #Basophils 0.1 thou/uL (0.0-0.2); #Eosinphils 0.2 thou/uL (0.0-0.7); #Lymphocytes 2.5 thou/uL (1.20-3.40); #Monocytes 0.9 thou/uL (0.11-0.59); %Basophils 0.4 % (0.0-1.0); %Eosinophils 1.9 % (0.0-10.0); %Lymphocytes 19.3 % (21.0-51.0); %Monocytes 7.4 % (0.0-10.0); Hemoglobin 9.2 g/dL (12.0-16.0); Mean Corpuscular HGB CONC 32.8 g/dL (32.0-36.0); Mean Corpuscular Hemoglobin 29.8 pg (27.0-31.0); Mean Corpuscular Volume 90.9 fL (78.0-98.0); Mean Platelet Volume 8.7 fL (7.4-10.4); Platelet Count 178 thou/uL (130-400); RBC Distribution Width 14.4 % (11.5-14.5); Red Blood Cell (RBC) Count 3.07 mill/uL (4.20-5.40); White Blood Cell (WBC) Count 12.7 thou/uL (4.8-10.8)
[2022-02-12 05:01] LABS: ALT (SGPT) 9 U/L (8-55); AST (SGOT) 18 U/L (5-34); Albumin 2.3 g/dL (3.4-4.8); Alkaline Phosphatase 73 U/L (40-110); Anion Gap 12 mmol/L (10-20); BUN (Urea Nitrogen) 40 mg/dL (9.8-20.1); Bilirubin, Total 0.5 mg/dL (0.2-1.2); Calc. Creatinine Clearance 23 mL/min (70-130); Calcium 7.8 mg/dL (7.8-10.44); Carbon Dioxide 31 mmol/L (23-31); Chloride 97 mmol/L (98-107); Globulin 4.2 g/dL (2.4-3.5); Glucose 85 mg/dL (80-115); Potassium 3.8 mmol/L (3.5-5.1); Protein, Total 6.5 g/dL (5.8-8.1); Sodium 136 mmol/L (136-145)
[2022-02-12] MEDS: Atorvastatin Calcium 10 MG TAB PO SCH (08:47)
[2022-02-12] MEDS: Sodium Bicarbonate Tab 325 MG TAB PO SCH ×2 (08:47→21:18)
[2022-02-12] MEDS: Polyethylene Glycol 3350 17 GM Packet PO SCH (08:47)
[2022-02-12] MEDS: Docusate 100 MG CAP PO SCH ×2 (08:47→21:18)
[2022-02-12] MEDS: Insulin Glargine 30 UNITS/0.3 ML VIAL SC SCH ×2 (08:47→21:18)
[2022-02-12 14:38] LABS: Actual Bicarbonate (HCO3a) 30.7 mEq/L (22-28); Base Excess (BEa) 6.5 mEq/L (-2.0 to +3.0); CO2 Tension 43.1 mmHg (35.0-45.0); Calcium, Ionized (arterial) 1.02 mmol/L (1.12-1.30); Carboxyhemoglobin (COHb) 0.9 gm% (0.0-3.0); Hemoglobin (Hb) 9.5 g/dL (12.0-16.0); O2 Tension (PaO2), arterial 70.5 mmHg (> 80.0); Potassium - ABG Lab 3.85 mmol/L (3.70-5.30); pH, Arterial 7.47 (7.35-7.45)
[2022-02-12 14:39] LABS: ALV-art Gradient 75.265 mmHg (0-20); Puncture Site RBA
[2022-02-12] MEDS: Cefepime 1 GM in Sodium Chloride 0.9% 100 ML IVPB SCH (21:17)
[2022-02-13 06:15] LABS: #Eosinphils 0.2 thou/uL (0.0-0.7); #Lymphocytes 1.7 thou/uL (1.20-3.40); #Monocytes 0.9 thou/uL (0.11-0.59); #Neutrophils 8.2 thou/uL (1.40-6.50); %Basophils 0.2 % (0.0-1.0); %Eosinophils 1.7 % (0.0-10.0); %Lymphocytes 15.3 % (21.0-51.0); %Monocytes 8.1 % (0.0-10.0); %Neutrophils 74.7 % (42.0-75.0); Hemoglobin 9.3 g/dL (12.0-16.0); Mean Corpuscular HGB CONC 30.3 g/dL (32.0-36.0); Mean Corpuscular Volume 92.4 fL (78.0-98.0); Mean Platelet Volume 8.6 fL (7.4-10.4); Platelet Count 184 thou/uL (130-400); RBC Distribution Width 14.5 % (11.5-14.5); Red Blood Cell (RBC) Count 3.32 mill/uL (4.20-5.40); White Blood Cell (WBC) Count 10.9 thou/uL (4.8-10.8)
[2022-02-13 06:34] LABS: Anion Gap 12 mmol/L (10-20); BUN (Urea Nitrogen) 38 mg/dL (9.8-20.1); Calc. Creatinine Clearance 24 mL/min (70-130); Calcium 7.9 mg/dL (7.8-10.44); Carbon Dioxide 28 mmol/L (23-31); Chloride 98 mmol/L (98-107); Glucose 141 mg/dL (80-115); Potassium 4.2 mmol/L (3.5-5.1); Sodium 134 mmol/L (136-145)
[2022-02-13] MEDS: Insulin Glargine 30 UNITS/0.3 ML VIAL SC SCH (08:10)
[2022-02-13] MEDS: Atorvastatin Calcium 10 MG TAB PO SCH (08:11)
[2022-02-13] MEDS: Sodium Bicarbonate Tab 325 MG TAB PO SCH ×2 (08:11→20:31)
[2022-02-13 08:25] LABS: INR-International Normal Ratio 1.2; Prothrombin Time 15.5 sec (12.0-14.7)
[2022-02-13 08:26] LABS: PTT 33.9 sec (22.9-36.1)
[2022-02-13] MEDS: Docusate 100 MG CAP PO SCH ×2 (09:48→20:31)
[2022-02-13] MEDS: Polyethylene Glycol 3350 17 GM Packet PO SCH (09:48)
[2022-02-13] MEDS ORDERED: Sodium Bicarbonate 2.5 MEQ/5 ML VIAL ONE (12:57)
[2022-02-13] MEDS ORDERED: Lidocaine 1% PF 5 ML VIAL ONE (12:57)
[2022-02-13 15:39] LABS: Fluid, Triglycerides 18 mg/dL (Not Available); Pleural Fluid, Amylase Less than 30 U/L (Not Available); Pleural Fluid, Glucose 119 mg/dL; Pleural Fluid, LDH 81 U/L (Not Available); Pleural Fluid, Protein 1.8 g/dL
[2022-02-13 15:57] LABS: Fluid, pH - Pleural Fld Greater than 7.50 (7.60 - 7.66)
[2022-02-13 16:18] LABS: RBC Count-Automated (BF) 1890 /cu.mm; WBC/Nucleated-Auto (BF) 1305 /cu.mm
[2022-02-13 16:34] LABS: BF Color Yellow; Body Fluid Source Thoracentesis Fluid; Clarity Hazy (Clear); Tube # EDTA
[2022-02-13 16:35] LABS: BF Segmented Neutrophils 8 %; Cell Count Non Hematic 82 %; Lymphocytes 10 %
[2022-02-13] MEDS: Cefepime 1 GM in Sodium Chloride 0.9% 100 ML IVPB SCH (18:22)
[2022-02-14 06:12] LABS: #Eosinphils 0.2 thou/uL (0.0-0.7); #Lymphocytes 1.7 thou/uL (1.20-3.40); #Monocytes 0.7 thou/uL (0.11-0.59); #Neutrophils 7.3 thou/uL (1.40-6.50); %Basophils 0.2 % (0.0-1.0); %Eosinophils 2.1 % (0.0-10.0); %Monocytes 7.4 % (0.0-10.0); %Neutrophils 73.3 % (42.0-75.0); Hemoglobin 10.3 g/dL (12.0-16.0); Mean Corpuscular HGB CONC 30.9 g/dL (32.0-36.0); Mean Corpuscular Hemoglobin 28.6 pg (27.0-31.0); Mean Corpuscular Volume 92.7 fL (78.0-98.0); Mean Platelet Volume 8.6 fL (7.4-10.4); Platelet Count 178 thou/uL (130-400); RBC Distribution Width 14.5 % (11.5-14.5); Red Blood Cell (RBC) Count 3.59 mill/uL (4.20-5.40)
[2022-02-14 06:36] LABS: Anion Gap 15 mmol/L (10-20); BUN (Urea Nitrogen) 34 mg/dL (9.8-20.1); Calc. Creatinine Clearance 25 mL/min (70-130); Calcium 8.4 mg/dL (7.8-10.44); Carbon Dioxide 28 mmol/L (23-31); Chloride 100 mmol/L (98-107); Glucose 291 mg/dL (80-115); Sodium 138 mmol/L (136-145)
[2022-02-14] MEDS: Insulin Glargine 30 UNITS/0.3 ML VIAL SC SCH (10:47)
[2022-02-14] MEDS: Atorvastatin Calcium 10 MG TAB PO SCH ×2 (11:21→11:25)
[2022-02-14] MEDS: Polyethylene Glycol 3350 17 GM Packet PO SCH (11:24)
[2022-02-14] MEDS: Docusate 100 MG CAP PO SCH ×2 (11:24→20:14)
[2022-02-14] MEDS: Cefepime 1 GM in Sodium Chloride 0.9% 100 ML IVPB SCH (18:54)
[2022-02-14] MEDS: HumaLOG 300 UNITS/3 ML VIAL SC PRN (21:10)
[2022-02-15] MEDS: Atorvastatin Calcium 10 MG TAB PO SCH (09:13)
[2022-02-15] MEDS: Docusate 100 MG CAP PO SCH ×2 (09:13→21:33)
[2022-02-15] MEDS: Polyethylene Glycol 3350 17 GM Packet PO SCH (09:13)
[2022-02-15] MEDS ORDERED: hydrALAZINE 20 MG/ML VIAL SLOW IVP PRN (11:02)
[2022-02-15] MEDS ORDERED: Cepastat Lozenges 1 LOZ PO PRN (11:02)
[2022-02-15] MEDS ORDERED: Artificial Tear Sol 15 ML BOT EA EYE PRN (11:02)
[2022-02-15] MEDS ORDERED: GUAIFENESIN SF SOLN 200 MG/10 ML UDCUP PO PRN (11:02)
[2022-02-15] MEDS ORDERED: Moisturizing Cream (Eucerin) 113 GM JAR TOP PRN (11:02)
[2022-02-15] MEDS ORDERED: Loperamide HCl 2 MG CAP PO PRN (11:02)
[2022-02-15] MEDS ORDERED: Sodium Chloride 0.65% Nasal 44 ML BOT EA NARE PRN (11:02)
[2022-02-15] MEDS ORDERED: Calcium Carbonate 500 MG ChewTAB PO PRN (11:02)
[2022-02-15] MEDS: cefTRIAXone\\ROCEPHIN 1 GM in Sodium Chloride 0.9% 100 ML IVPB SCH (12:31)
[2022-02-15] MEDS: Heparin 5,000 UNITS/ML VIAL SC SCH (21:32)
[2022-02-16] MEDS: HumaLOG 300 UNITS/3 ML VIAL SC PRN ×4 (00:51→21:22)
[2022-02-16 06:35] LABS: #Eosinphils 0.2 thou/uL (0.0-0.7); #Lymphocytes 2.4 thou/uL (1.20-3.40); #Monocytes 0.7 thou/uL (0.11-0.59); #Neutrophils 6.6 thou/uL (1.40-6.50); %Basophils 0.2 % (0.0-1.0); %Eosinophils 2.2 % (0.0-10.0); %Monocytes 7.2 % (0.0-10.0); %Neutrophils 66.4 % (42.0-75.0); Hemoglobin 9.2 g/dL (12.0-16.0); Mean Corpuscular HGB CONC 30.8 g/dL (32.0-36.0); Mean Corpuscular Hemoglobin 28.3 pg (27.0-31.0); Mean Platelet Volume 8.8 fL (7.4-10.4); Platelet Count 165 thou/uL (130-400); RBC Distribution Width 14.4 % (11.5-14.5); Red Blood Cell (RBC) Count 3.26 mill/uL (4.20-5.40)
[2022-02-16 07:05] LABS: ALT (SGPT) 10 U/L (8-55); AST (SGOT) 18 U/L (5-34); Albumin 2.8 g/dL (3.4-4.8); Alkaline Phosphatase 81 U/L (40-110); Anion Gap 12 mmol/L (10-20); BUN (Urea Nitrogen) 37 mg/dL (9.8-20.1); Bilirubin, Total 0.6 mg/dL (0.2-1.2); Calc. Creatinine Clearance 28 mL/min (70-130); Calcium 8.6 mg/dL (7.8-10.44); Carbon Dioxide 30 mmol/L (23-31); Chloride 99 mmol/L (98-107); Globulin 4.8 g/dL (2.4-3.5); Glucose 188 mg/dL (80-115); Magnesium 1.5 mg/dL (1.6-2.6); Phosphorus 2.8 mg/dL (2.3-4.7); Potassium 4.6 mmol/L (3.5-5.1); Protein, Total 7.6 g/dL (5.8-8.1); Sodium 136 mmol/L (136-145)
[2022-02-16] MEDS ORDERED: Magnesium Sulfate 3 GM in Sodium Chloride 0.9% 100 ML IVPB SCH (07:45)
[2022-02-16] MEDS: Polyethylene Glycol 3350 17 GM Packet PO SCH (09:37)
[2022-02-16] MEDS: Docusate 100 MG CAP PO SCH ×2 (09:37→21:21)
[2022-02-16] MEDS: Heparin 5,000 UNITS/ML VIAL SC SCH ×2 (09:41→21:21)
[2022-02-16] MEDS: Atorvastatin Calcium 10 MG TAB PO SCH (09:41)
[2022-02-16] MEDS: cefTRIAXone\\ROCEPHIN 1 GM in Sodium Chloride 0.9% 100 ML IVPB SCH (11:53)
[2022-02-17] MEDS: HumaLOG 300 UNITS/3 ML VIAL SC PRN (05:45)
[2022-02-17 06:46] LABS: Anion Gap 13 mmol/L (10-20); BUN (Urea Nitrogen) 38 mg/dL (9.8-20.1); Calc. Creatinine Clearance 27 mL/min (70-130); Calcium 8.4 mg/dL (7.8-10.44); Carbon Dioxide 26 mmol/L (23-31); Chloride 102 mmol/L (98-107); Glucose 244 mg/dL (80-115); Magnesium 1.5 mg/dL (1.6-2.6); Sodium 136 mmol/L (136-145)
[2022-02-17 07:53] VITALS: BP 122/71; TEMP 97.8
[2022-02-17] MEDS ORDERED: NPH, Human Insulin Isophane 300 UNIT/3 ML VIAL SC SCH (09:00)
[2022-02-17] MEDS: Magnesium Sulfate 3 GM in Sodium Chloride 0.9% 100 ML IVPB SCH ×2 (09:27→13:18)
[2022-02-17] MEDS: Atorvastatin Calcium 10 MG TAB PO SCH (09:28)
[2022-02-17] MEDS: Heparin 5,000 UNITS/ML VIAL SC SCH (09:34)
[2022-02-17] MEDS: Polyethylene Glycol 3350 17 GM Packet PO SCH (10:09)
[2022-02-17] MEDS: Docusate 100 MG CAP PO SCH (10:10)
[2022-02-17] MEDS ORDERED: Magnesium Oxide 400 MG TAB PO SCH (12:00)
[2022-02-17] MEDS: cefTRIAXone\\ROCEPHIN 1 GM in Sodium Chloride 0.9% 100 ML IVPB SCH (13:18)
[2022-02-18] MEDS ORDERED: Cefdinir 300 MG CAP PO SCH (09:00)
== END 2022-02-17 14:44 | disposition home health service (06) | DRG 853 ==
LOC: ERS 14:10 → SDC/OP 20:45 → CCU 22:14 → T4-B 02-06 09:42
PROVIDERS: ADMIT Internal Medicine; ATTEND Internal Medicine
PROC: 0T768DZ Dilation of Right Ureter with Intraluminal Device, Via Natural or Artificial Opening Endoscopic (ICD-10-PCS; principal; 2022-02-05)
PROC: 3E03329 Introduction of Other Anti-infective into Peripheral Vein, Percutaneous Approach (ICD-10-PCS; 2022-02-05)
PROC: BT1D1ZZ Fluoroscopy of Right Kidney, Ureter and Bladder using Low Osmolar Contrast (ICD-10-PCS; 2022-02-05)
PROC: 3E033XZ Introduction of Vasopressor into Peripheral Vein, Percutaneous Approach (ICD-10-PCS; 2022-02-05)
PROC: 30233N1 Transfusion of Nonautologous Red Blood Cells into Peripheral Vein, Percutaneous Approach (ICD-10-PCS; 2022-02-08)
PROC: 0W993ZX Drainage of Right Pleural Cavity, Percutaneous Approach, Diagnostic (ICD-10-PCS; 2022-02-09)
DX: A41.51 Sepsis due to Escherichia coli [E. coli] (principal); Z20.822 Contact with and (suspected) exposure to COVID-19; R65.21 Severe sepsis with septic shock; J96.01 Acute respiratory failure with hypoxia; N13.6 Pyonephrosis; I69.354 Hemiplegia and hemiparesis following cerebral infarction affecting left non-dominant side; E87.1 Hypo-osmolality and hyponatremia; N17.9 Acute kidney failure, unspecified; N13.8 Other obstructive and reflux uropathy; G93.49 Other encephalopathy; J90 Pleural effusion, not elsewhere classified; N18.4 Chronic kidney disease, stage 4 (severe); E87.5 Hyperkalemia; N30.81 Other cystitis with hematuria; E11.22 Type 2 diabetes mellitus with diabetic chronic kidney disease; I12.9 Hypertensive chronic kidney disease with stage 1 through stage 4 chronic kidney disease, or unspecified chronic kidney disease; M54.2 Cervicalgia; D63.1 Anemia in chronic kidney disease; E78.5 Hyperlipidemia, unspecified; E11.51 Type 2 diabetes mellitus with diabetic peripheral angiopathy without gangrene; R33.9 Retention of urine, unspecified; E88.09 Other disorders of plasma-protein metabolism, not elsewhere classified; E83.51 Hypocalcemia; Z79.899 Other long term (current) drug therapy; Z79.82 Long term (current) use of aspirin; Z79.02 Long term (current) use of antithrombotics/antiplatelets; Z79.4 Long term (current) use of insulin; Z28.21 Immunization not carried out because of patient refusal; Z89.512 Acquired absence of left leg below knee; Z89.511 Acquired absence of right leg below knee; Z87.442 Personal history of urinary calculi; Z98.890 Other specified postprocedural states; Z95.0 Presence of cardiac pacemaker
CPT/HCPCS: 32555; 36415; 36416; 36430; 36600; 51701; 70450; 71045; 71250; 72040; 72125; 74018; 74176; 74420; 80048; 80053; 80061; 81003; 81015; 82140; 82150; 82274; 82728; 82805; 82945; 83036; 83540; 83550; 83605; 83615; 83735; 83930; 83935; 83986; 84100; 84157; 84300; 84478; 85025; 85060; 85610; 85730; 86850; 86900; 86901; 87040; 87070; 87077; 87086; 87116; 87186; 87205; 87206; 88112; 88305; 89051; 93005; 95712; 95819; 95957; 96365; 96366; C2617; C9113; J0690; J0692; J0696; J1644; J1815; J1940; J2060; J2270; J2370; J2704; J3370; J3475; J3490; J7030; J7050; J7070; J7999; P9016; Q9967; U0002; U0003; U0005

== ENCOUNTER 2022-02-19 09:17 | Outpatient (CLI) | payer SELFPAY ==
[2022-02-19 11:09] LABS: Hemoglobin 8.1 g/dL (12.0-15.5); Mean Corpuscular HGB CONC 30.3 g/dL (32.0-36.0); Mean Corpuscular Hemoglobin 27.6 pg (27.0-33.0); Mean Corpuscular Volume 91.1 fl (81.6-98.3); Mean Platelet Volume 12.5 fl (7.4-10.4); Platelet Count 147 10x3/uL (150-450); RBC Distribution Width 15.4 % (11.5-14.5); Red Blood Cell (RBC) Count 2.93 10x6/uL (3.90-5.03); White Blood Cell (WBC) Count 6.5 10x3/uL (3.5-10.5)
[2022-02-19 11:23] LABS: Anion Gap 15 mmol/L (10-20); BUN (Urea Nitrogen) 45 mg/dL (9.8-20.1); Calc. Creatinine Clearance 0 mL/min (70-130); Calcium 8.4 mg/dL (7.8-10.44); Carbon Dioxide 24 mmol/L (23-31); Chloride 100 mmol/L (98-107); Glucose 148 mg/dL (80-115); Potassium 5.3 mmol/L (3.5-5.1); Sodium 134 mmol/L (136-145)
[2022-02-19 11:24] LABS: INR-International Normal Ratio 1.1; PTT 27.6 sec (22.0-33.0); Prothrombin Time 11.4 sec (9.5-12.1)
== END 2022-02-19 09:18 | disposition home or self-care (01) ==
LOC: LABBT 09:17
PROVIDERS: ATTEND Urology
DX: Z01.812 Encounter for preprocedural laboratory examination (principal); N20.1 Calculus of ureter; Z20.822 Contact with and (suspected) exposure to COVID-19
CPT/HCPCS: 80048; 85027; 85610; 85730; U0003; U0005

== ENCOUNTER 2022-02-24 06:44 | Day surgery (SDC) | payer SELFPAY ==
[2022-02-24] MEDS ORDERED: Iopamidol 15 ML ONE ×2 (08:53)
[2022-02-24] MEDS ORDERED: Fentanyl 100 MCG/2 ML VIAL ONE (09:14)
[2022-02-24] MEDS ORDERED: Ondansetron PF 4 MG/2 ML Vial ONE ×2 (09:48→11:56)
[2022-02-24] MEDS ORDERED: ePHEDrine 50 MG/ML VIAL ONE (09:48)
[2022-02-24] MEDS ORDERED: Lidocaine 1% PF 5 ML VIAL ONE (09:48)
[2022-02-24] MEDS ORDERED: Rocuronium Bromide 10 MG/ML (10ML VIAL) ONE (09:48)
[2022-02-24] MEDS ORDERED: Glycopyrrolate 0.2 MG/ML 5 ML SYRINGE ONE (09:48)
[2022-02-24] MEDS ORDERED: PROPOFOL 200 MG/20 ML VIAL ONE (09:48)
[2022-02-24] MEDS ORDERED: Dexamethasone 20 MG/5 ML VIAL ONE (09:48)
[2022-02-24] MEDS ORDERED: SUGAMMADEX SODIUM 200 MG/2 ML VIAL ONE (11:16)
[2022-02-24 15:35] LABS: #Lymphocytes 0.7 thou/uL (1.20-3.40); #Monocytes 0.1 thou/uL (0.11-0.59); #Neutrophils 6.9 thou/uL (1.40-6.50); %Eosinophils 0.5 % (0.0-10.0); %Lymphocytes 9.6 % (21.0-51.0); %Monocytes 1.6 % (0.0-10.0); %Neutrophils 88.3 % (42.0-75.0); Hemoglobin 8.3 g/dL (12.0-16.0); Mean Corpuscular HGB CONC 30.8 g/dL (32.0-36.0); Mean Corpuscular Hemoglobin 28.6 pg (27.0-31.0); Mean Corpuscular Volume 92.7 fL (78.0-98.0); Mean Platelet Volume 10.8 fL (7.4-10.4); Platelet Count 132 thou/uL (130-400); RBC Distribution Width 15.9 % (11.5-14.5); Red Blood Cell (RBC) Count 2.89 mill/uL (4.20-5.40); White Blood Cell (WBC) Count 7.8 thou/uL (4.8-10.8)
== END 2022-02-24 15:57 | disposition home or self-care (01) ==
LOC: SDC 06:44
PROVIDERS: ATTEND Urology
PROC: 0T768DZ Dilation of Right Ureter with Intraluminal Device, Via Natural or Artificial Opening Endoscopic (ICD-10-PCS; principal; 2022-02-24)
PROC: 0TC38ZZ Extirpation of Matter from Right Kidney Pelvis, Via Natural or Artificial Opening Endoscopic (ICD-10-PCS; principal; 2022-02-24)
DX: N20.2 Calculus of kidney with calculus of ureter (principal); I10 Essential (primary) hypertension; E11.9 Type 2 diabetes mellitus without complications; Z79.02 Long term (current) use of antithrombotics/antiplatelets; Z79.2 Long term (current) use of antibiotics; Z79.4 Long term (current) use of insulin; Z79.82 Long term (current) use of aspirin; Z79.899 Other long term (current) drug therapy; Z89.511 Acquired absence of right leg below knee; Z89.512 Acquired absence of left leg below knee
CPT/HCPCS: 36415; 36416; 74420; 82365; 85025; 88300; C2617; J1100; J1956; J2405; J2704; J3010; J3490; Q9967

== ENCOUNTER 2022-02-25 21:47 | Inpatient (IN) | payer MEDICAID, SELFPAY ==
[2022-02-25 22:19] LABS: #Basophils 0.1 thou/uL (0.0-0.2); #Monocytes 0.5 thou/uL (0.11-0.59); #Neutrophils 7.8 thou/uL (1.40-6.50); %Basophils 0.6 % (0.0-1.0); %Eosinophils 0.3 % (0.0-10.0); %Lymphocytes 19.5 % (21.0-51.0); %Monocytes 4.7 % (0.0-10.0); %Neutrophils 74.8 % (42.0-75.0); Hemoglobin 8.5 g/dL (12.0-16.0); Mean Corpuscular HGB CONC 31.1 g/dL (32.0-36.0); Mean Corpuscular Hemoglobin 28.9 pg (27.0-31.0); Mean Corpuscular Volume 93.1 fL (78.0-98.0); Mean Platelet Volume 10.9 fL (7.4-10.4); Platelet Count 175 thou/uL (130-400); RBC Distribution Width 15.8 % (11.5-14.5); Red Blood Cell (RBC) Count 2.94 mill/uL (4.20-5.40); White Blood Cell (WBC) Count 10.4 thou/uL (4.8-10.8)
[2022-02-25] MEDS ORDERED: Cefepime 2 GM VIAL ONE (22:35)
[2022-02-25 22:42] LABS: ALT (SGPT) 15 U/L (8-55); AST (SGOT) 19 U/L (5-34); Alkaline Phosphatase 81 U/L (40-110); Anion Gap 15 mmol/L (10-20); BUN (Urea Nitrogen) 54 mg/dL (9.8-20.1); Bilirubin, Total 0.5 mg/dL (0.2-1.2); CK (CPK) 31 U/L (29-168); Calc. Creatinine Clearance 0 mL/min (70-130); Calcium 7.5 mg/dL (7.8-10.44); Carbon Dioxide 17 mmol/L (23-31); Chloride 95 mmol/L (98-107); Estimated GFR 17; Globulin 4.4 g/dL (2.4-3.5); Glucose 359 mg/dL (80-115); Lipase 19 U/L (8-78); Magnesium 1.7 mg/dL (1.6-2.6); Potassium 6.4 mmol/L (3.5-5.1); Protein, Total 7.4 g/dL (5.8-8.1); Sodium 121 mmol/L (136-145)
[2022-02-25 22:47] LABS: Bacteria/HPF 4+ HPF (None Seen); Bilirubin Negative (Negative); Blood, Urine 3+ (Negative); Clarity Extra Turbid (Clear); Glucose, Urine (Dipstick) 500 mg/dL (Negative); Ketone, Urine Negative (Negative); Leukocyte 500 Leu/uL (Negative); Nitrite Negative (Negative); Protein, Urine (Dipstick) 70 mg/dL (Neg-Trace); RBC/HPF 21-50 HPF (0-3); Renal Epithelial 0-3 HPF (None Seen); Specific Gravity, Urine 1.007 (1.002-1.036); Squamous Epithelial 0-3 HPF (0-3); Urobilinogen Normal mg/dL (Less than 2); WBC/HPF Greater than 50 HPF (0-3); Yeast-Budding 2+ HPF (None Seen); pH, Urine 5.5 (5.0-9.0)
[2022-02-25 23:01] LABS: CKMB 1.8 ng/mL (0-6.6)
[2022-02-26] MEDS ORDERED: Sodium Bicarbonate 2.5 MEQ/5 ML VIAL ONE (00:23)
[2022-02-26] MEDS ORDERED: CALCIUM GLUC 1GM/NS 50ML BAG ONE (00:23)
[2022-02-26] MEDS ORDERED: Insulin Regular 300 UNITS/3 ML VIAL ONE (00:23)
[2022-02-26] MEDS ORDERED: Sodium Bicarb 50 MEQ/50 ML Abboject 8.4% SYRINGE ONE (00:27)
[2022-02-26 00:47] LABS: Anion Gap 17 mmol/L (10-20); BUN (Urea Nitrogen) 55 mg/dL (9.8-20.1); Calc. Creatinine Clearance 0 mL/min (70-130); Calcium 7.4 mg/dL (7.8-10.44); Carbon Dioxide 16 mmol/L (23-31); Chloride 96 mmol/L (98-107); Estimated GFR 17; Glucose 318 mg/dL (80-115); Sodium 123 mmol/L (136-145)
[2022-02-26] MEDS ORDERED: Morphine 2 MG/ML VIAL SLOW IVP PRN (01:25)
[2022-02-26] MEDS ORDERED: hydrALAZINE 20 MG/ML VIAL SLOW IVP PRN (01:25)
[2022-02-26] MEDS ORDERED: Ondansetron PF 4 MG/2 ML Vial IVP PRN (01:29)
[2022-02-26] MEDS ORDERED: Bisacodyl 5 MG TAB PO PRN (01:29)
[2022-02-26] MEDS ORDERED: HYDROcodone/Acetaminophen 7.5/325 mg Tablet PO PRN (01:29)
[2022-02-26] MEDS ORDERED: Acetaminophen 325 MG TAB PO PRN (01:29)
[2022-02-26] MEDS ORDERED: Dextrose 50% Abboject 50 ML SYRINGE SLOW IVP PRN (01:29)
[2022-02-26] MEDS ORDERED: Dextrose 5% in Water 1,000 ML IV PRN (01:29)
[2022-02-26] MEDS ORDERED: Zolpidem Tartrate 5 MG TAB PO PRN (01:29)
[2022-02-26] MEDS ORDERED: Calcium Gluconate 100 MG/ML 10 ML IVPB SCH (01:30)
[2022-02-26 01:33] LABS: Lactic Acid 1.8 mmol/L (0.5-2.2)
[2022-02-26] MEDS ORDERED: Insulin Regular 300 UNITS/3 ML VIAL IVP SCH (01:45)
[2022-02-26] MEDS ORDERED: Heparin 5,000 UNITS/ML VIAL SC SCH (01:45)
[2022-02-26] MEDS ORDERED: Sodium Bicarb 50 MEQ/50 ML VIAL IVP SCH (01:45)
[2022-02-26 01:59] LABS: SARS-CoV-2 NAA Rapid Test Not Detected (NotDetected)
[2022-02-26] MEDS ORDERED: Sodium Bicarbonate 75 MEQ in Sodium Chloride 0.45% 1,000 ML IV SCH (02:00)
[2022-02-26 02:59] LABS: Troponin I 0.138 ng/mL (< 0.028)
[2022-02-26] MEDS: CALCIUM GLUC 1GM/NS 50ML 1 GM in Premix Bag 1 BAG IVPB SCH ×2 (04:18→04:23)
[2022-02-26 04:20] VITALS: BMI 26.2
[2022-02-26 04:45] LABS: #Eosinphils 0.1 thou/uL (0.0-0.7); #Lymphocytes 1.9 thou/uL (1.20-3.40); #Monocytes 0.8 thou/uL (0.11-0.59); #Neutrophils 6.9 thou/uL (1.40-6.50); %Basophils 0.5 % (0.0-1.0); %Eosinophils 0.5 % (0.0-10.0); %Lymphocytes 20.1 % (21.0-51.0); %Monocytes 7.9 % (0.0-10.0); %Neutrophils 71.1 % (42.0-75.0); Hemoglobin 7.7 g/dL (12.0-16.0); Mean Corpuscular HGB CONC 31.2 g/dL (32.0-36.0); Mean Corpuscular Hemoglobin 29.2 pg (27.0-31.0); Mean Corpuscular Volume 93.6 fL (78.0-98.0); Mean Platelet Volume 10.8 fL (7.4-10.4); Platelet Count 160 thou/uL (130-400); RBC Distribution Width 15.9 % (11.5-14.5); Red Blood Cell (RBC) Count 2.63 mill/uL (4.20-5.40); White Blood Cell (WBC) Count 9.7 thou/uL (4.8-10.8)
[2022-02-26 05:00] LABS: ALT (SGPT) 15 U/L (8-55); AST (SGOT) 17 U/L (5-34); Albumin 2.9 g/dL (3.4-4.8); Alkaline Phosphatase 70 U/L (40-110); Anion Gap 16 mmol/L (10-20); BUN (Urea Nitrogen) 54 mg/dL (9.8-20.1); Bilirubin, Total 0.6 mg/dL (0.2-1.2); Calc. Creatinine Clearance 18 mL/min (70-130); Calcium 7.6 mg/dL (7.8-10.44); Carbon Dioxide 18 mmol/L (23-31); Chloride 101 mmol/L (98-107); Estimated GFR 17; Globulin 3.9 g/dL (2.4-3.5); Glucose 123 mg/dL (80-115); Potassium 4.8 mmol/L (3.5-5.1); Protein, Total 6.8 g/dL (5.8-8.1); Sodium 130 mmol/L (136-145)
[2022-02-26 05:04] LABS: Troponin I 0.156 ng/mL (< 0.028)
[2022-02-26] MEDS ORDERED: Vancomycin 1 GM in Premix Bag 1 BAG IVPB SCH (05:30)
[2022-02-26 07:27] LABS: Troponin I 0.147 ng/mL (< 0.028)
[2022-02-26] MEDS: Heparin 5,000 UNITS/ML VIAL SC SCH ×2 (09:56→20:35)
[2022-02-26] MEDS: Carvedilol 3.125 MG TAB PO SCH ×2 (09:56→20:34)
[2022-02-26] MEDS: Aspirin 81 mg Enteric Coated Tablet PO SCH (09:56)
[2022-02-26] MEDS: Famotidine 20 MG TAB PO SCH (09:56)
[2022-02-26] MEDS: Clopidogrel Bisulfate 75 MG TAB PO SCH (09:56)
[2022-02-26] MEDS: HumuLIN 70/30 (300 UNITS/3 ML VIAL) SC SCH ×2 (09:57→20:34)
[2022-02-26] MEDS: Cefepime 1 GM in Sodium Chloride 0.9% 100 ML IVPB SCH (09:57)
[2022-02-26] MEDS: Atorvastatin Calcium 10 MG TAB PO SCH (20:34)
[2022-02-27] MEDS ORDERED: SODIUM CHLORIDE 0.9% IVPB SCH (04:00)
[2022-02-27] MEDS ORDERED: VANCOMYCIN HCL IVPB SCH (04:00)
[2022-02-27 04:54] LABS: Vancomycin, Random 12.6 ug/mL (See Comment)
[2022-02-27 05:05] LABS: ALT (SGPT) 14 U/L (8-55); AST (SGOT) 17 U/L (5-34); Albumin 2.7 g/dL (3.4-4.8); Alkaline Phosphatase 68 U/L (40-110); Anion Gap 15 mmol/L (10-20); BUN (Urea Nitrogen) 43 mg/dL (9.8-20.1); Bilirubin, Total 0.6 mg/dL (0.2-1.2); Calc. Creatinine Clearance 22 mL/min (70-130); Calcium 7.4 mg/dL (7.8-10.44); Carbon Dioxide 20 mmol/L (23-31); Chloride 103 mmol/L (98-107); Estimated GFR 21; Globulin 3.9 g/dL (2.4-3.5); Glucose 146 mg/dL (80-115); Potassium 4.1 mmol/L (3.5-5.1); Protein, Total 6.6 g/dL (5.8-8.1); Sodium 134 mmol/L (136-145)
[2022-02-27 05:10] LABS: #Eosinphils 0.1 thou/uL (0.0-0.7); #Lymphocytes 1.6 thou/uL (1.20-3.40); #Monocytes 0.4 thou/uL (0.11-0.59); #Neutrophils 4.3 thou/uL (1.40-6.50); %Basophils 0.3 % (0.0-1.0); %Eosinophils 2.2 % (0.0-10.0); %Lymphocytes 24.5 % (21.0-51.0); %Monocytes 6.2 % (0.0-10.0); %Neutrophils 66.8 % (42.0-75.0); Hemoglobin 7.9 g/dL (12.0-16.0); Mean Corpuscular HGB CONC 30.6 g/dL (32.0-36.0); Mean Corpuscular Hemoglobin 28.4 pg (27.0-31.0); Mean Corpuscular Volume 92.9 fL (78.0-98.0); Mean Platelet Volume 10.8 fL (7.4-10.4); Platelet Count 151 thou/uL (130-400); RBC Distribution Width 16.1 % (11.5-14.5); Red Blood Cell (RBC) Count 2.76 mill/uL (4.20-5.40); White Blood Cell (WBC) Count 6.4 thou/uL (4.8-10.8)
[2022-02-27] MEDS: Cefepime 1 GM in Sodium Chloride 0.9% 100 ML IVPB SCH (08:29)
[2022-02-27] MEDS: Carvedilol 3.125 MG TAB PO SCH ×2 (08:29→20:40)
[2022-02-27] MEDS: Famotidine 20 MG TAB PO SCH (08:40)
[2022-02-27] MEDS: Heparin 5,000 UNITS/ML VIAL SC SCH ×2 (08:40→20:47)
[2022-02-27] MEDS: Clopidogrel Bisulfate 75 MG TAB PO SCH (08:40)
[2022-02-27] MEDS: Aspirin 81 mg Enteric Coated Tablet PO SCH (08:40)
[2022-02-27] MEDS: HumuLIN 70/30 (300 UNITS/3 ML VIAL) SC SCH ×2 (08:41→20:42)
[2022-02-27] MEDS ORDERED: Vancomycin HCl 500 MG in Sodium Chloride 0.9% 100 ML IVPB SCH (09:00)
[2022-02-27] MEDS ORDERED: Propofol 500 MG/50 ML VIAL ONE (09:04)
[2022-02-27] MEDS ORDERED: fentaNYL Citrate/PF 100 MCG/2 ML SYRINGE ONE (09:04)
[2022-02-27] MEDS ORDERED: Lidocaine 1% PF 5 ML VIAL ONE (09:52)
[2022-02-27] MEDS ORDERED: Dexamethasone 20 MG/5 ML VIAL ONE (09:52)
[2022-02-27] MEDS ORDERED: Glycopyrrolate 0.2 MG/ML 5 ML SYRINGE ONE (09:52)
[2022-02-27] MEDS ORDERED: PROPOFOL 200 MG/20 ML VIAL ONE (09:52)
[2022-02-27] MEDS ORDERED: Rocuronium Bromide 10 MG/ML (10ML VIAL) ONE (09:52)
[2022-02-27] MEDS ORDERED: Ondansetron PF 4 MG/2 ML Vial ONE (09:52)
[2022-02-27] MEDS ORDERED: Iopamidol 30 ML ONE (10:21)
[2022-02-27] MEDS ORDERED: Promethazine HCl 25 MG/ML VIAL IVPB PRN (11:19)
[2022-02-27] MEDS ORDERED: Meperidine HCl/PF 25 MG/ML VIAL SLOW IVP PRN (11:19)
[2022-02-27] MEDS ORDERED: Albuterol Sulfate 2.5 mg/3 ml Neb ONE (11:22)
[2022-02-27] MEDS ORDERED: SUGAMMADEX SODIUM 200 MG/2 ML VIAL ONE (12:01)
[2022-02-27] MEDS ORDERED: Acetaminophen 500 MG TAB PO PRN (12:44)
[2022-02-27] MEDS ORDERED: traMADol HCl 50 MG TAB PO PRN (12:44)
[2022-02-27] MEDS ORDERED: Acetaminophen 500 MG TAB PO SCH (12:45)
[2022-02-27 15:51] LABS: Creatinine, Urine 20.53 mg/dL (47-110)
[2022-02-27] MEDS: HumaLOG 300 UNITS/3 ML VIAL SC PRN ×2 (16:21→20:41)
[2022-02-27] MEDS: Atorvastatin Calcium 10 MG TAB PO SCH (20:40)
[2022-02-28 03:47] LABS: #Lymphocytes 0.7 thou/uL (1.20-3.40); #Monocytes 0.5 thou/uL (0.11-0.59); #Neutrophils 6.6 thou/uL (1.40-6.50); %Lymphocytes 9.1 % (21.0-51.0); %Monocytes 6.1 % (0.0-10.0); %Neutrophils 84.7 % (42.0-75.0); Hemoglobin 8.2 g/dL (12.0-16.0); Mean Corpuscular HGB CONC 31.7 g/dL (32.0-36.0); Mean Corpuscular Hemoglobin 29.2 pg (27.0-31.0); Mean Platelet Volume 11.1 fL (7.4-10.4); Platelet Count 134 thou/uL (130-400); RBC Distribution Width 15.7 % (11.5-14.5); Red Blood Cell (RBC) Count 2.81 mill/uL (4.20-5.40); White Blood Cell (WBC) Count 7.8 thou/uL (4.8-10.8)
[2022-02-28 04:07] LABS: ALT (SGPT) 44 U/L (8-55); AST (SGOT) 81 U/L (5-34); Albumin 2.7 g/dL (3.4-4.8); Alkaline Phosphatase 69 U/L (40-110); Anion Gap 15 mmol/L (10-20); BUN (Urea Nitrogen) 41 mg/dL (9.8-20.1); Bilirubin, Total 0.5 mg/dL (0.2-1.2); Calc. Creatinine Clearance 24 mL/min (70-130); Calcium 7.5 mg/dL (7.8-10.44); Carbon Dioxide 21 mmol/L (23-31); Chloride 103 mmol/L (98-107); Estimated GFR 24; Globulin 3.5 g/dL (2.4-3.5); Glucose 205 mg/dL (80-115); Potassium 3.9 mmol/L (3.5-5.1); Protein, Total 6.2 g/dL (5.8-8.1); Sodium 135 mmol/L (136-145)
[2022-02-28] MEDS: HumaLOG 300 UNITS/3 ML VIAL SC PRN ×2 (06:44→11:34)
[2022-02-28] MEDS: Aspirin 81 mg Enteric Coated Tablet PO SCH (08:04)
[2022-02-28] MEDS: Cefepime 1 GM in Sodium Chloride 0.9% 100 ML IVPB SCH (08:04)
[2022-02-28] MEDS: Carvedilol 3.125 MG TAB PO SCH ×2 (08:05→20:54)
[2022-02-28] MEDS: Famotidine 20 MG TAB PO SCH (08:05)
[2022-02-28] MEDS: HumuLIN 70/30 (300 UNITS/3 ML VIAL) SC SCH ×2 (08:05→20:54)
[2022-02-28] MEDS: Clopidogrel Bisulfate 75 MG TAB PO SCH (08:05)
[2022-02-28] MEDS: Heparin 5,000 UNITS/ML VIAL SC SCH ×3 (08:06→21:52)
[2022-02-28] MEDS: Atorvastatin Calcium 10 MG TAB PO SCH (20:54)
[2022-03-01] MEDS ORDERED: Iopamidol 45 ML ONE (06:54)
[2022-03-01] MEDS ORDERED: Midazolam HCl 2 mg/2 ml Vial ONE (07:26)
[2022-03-01] MEDS ORDERED: fentaNYL Citrate/PF 100 MCG/2 ML SYRINGE ONE (07:27)
[2022-03-01] MEDS: HumuLIN 70/30 (300 UNITS/3 ML VIAL) SC SCH ×2 (07:30→21:00)
[2022-03-01] MEDS ORDERED: Indomethacin 50 MG SUPP ONE (07:49)
[2022-03-01] MEDS ORDERED: Lidocaine 2% Jelly 5 ML TUBE ONE (07:55)
[2022-03-01] MEDS ORDERED: PROPOFOL 200 MG/20 ML VIAL ONE (08:15)
[2022-03-01] MEDS ORDERED: Glycopyrrolate 0.2 MG/ML 5 ML SYRINGE ONE (08:15)
[2022-03-01] MEDS ORDERED: Lidocaine 1% PF 5 ML VIAL ONE (08:15)
[2022-03-01] MEDS ORDERED: Rocuronium Bromide 10 MG/ML (10ML VIAL) ONE (08:15)
[2022-03-01] MEDS ORDERED: Dexamethasone 20 MG/5 ML VIAL ONE (08:15)
[2022-03-01] MEDS ORDERED: Ondansetron PF 4 MG/2 ML Vial ONE (08:15)
[2022-03-01] MEDS: Cefepime 1 GM in Sodium Chloride 0.9% 100 ML IVPB SCH (08:57)
[2022-03-01] MEDS: Carvedilol 3.125 MG TAB PO SCH ×2 (11:31→20:59)
[2022-03-01] MEDS: Aspirin 81 mg Enteric Coated Tablet PO SCH (11:32)
[2022-03-01] MEDS: Heparin 5,000 UNITS/ML VIAL SC SCH ×2 (11:32→21:01)
[2022-03-01] MEDS: Famotidine 20 MG TAB PO SCH (11:32)
[2022-03-01 13:52] LABS: Anion Gap 16 mmol/L (10-20); BUN (Urea Nitrogen) 42 mg/dL (9.8-20.1); Calc. Creatinine Clearance 28 mL/min (70-130); Calcium 7.4 mg/dL (7.8-10.44); Carbon Dioxide 17 mmol/L (23-31); Chloride 103 mmol/L (98-107); Estimated GFR 28; Glucose 263 mg/dL (80-115); Potassium 4.7 mmol/L (3.5-5.1); Sodium 131 mmol/L (136-145)
[2022-03-01] MEDS: HumaLOG 300 UNITS/3 ML VIAL SC PRN ×2 (16:56→21:09)
[2022-03-01] MEDS: Atorvastatin Calcium 10 MG TAB PO SCH (20:59)
[2022-03-02 06:05] LABS: #Lymphocytes 1.6 thou/uL (1.20-3.40); #Monocytes 0.8 thou/uL (0.11-0.59); #Neutrophils 8.8 thou/uL (1.40-6.50); %Eosinophils 0.2 % (0.0-10.0); %Monocytes 7.4 % (0.0-10.0); %Neutrophils 78.4 % (42.0-75.0); Hemoglobin 8.3 g/dL (12.0-16.0); Mean Corpuscular HGB CONC 31.8 g/dL (32.0-36.0); Mean Corpuscular Hemoglobin 29.6 pg (27.0-31.0); Mean Corpuscular Volume 93.1 fL (78.0-98.0); Mean Platelet Volume 10.5 fL (7.4-10.4); Platelet Count 147 thou/uL (130-400); RBC Distribution Width 16.2 % (11.5-14.5); Red Blood Cell (RBC) Count 2.79 mill/uL (4.20-5.40); White Blood Cell (WBC) Count 11.2 thou/uL (4.8-10.8)
[2022-03-02 06:27] LABS: Anion Gap 12 mmol/L (10-20); BUN (Urea Nitrogen) 41 mg/dL (9.8-20.1); Calc. Creatinine Clearance 28 mL/min (70-130); Calcium 7.7 mg/dL (7.8-10.44); Carbon Dioxide 24 mmol/L (23-31); Chloride 103 mmol/L (98-107); Estimated GFR 29; Glucose 119 mg/dL (80-115); Potassium 4.4 mmol/L (3.5-5.1); Sodium 135 mmol/L (136-145)
[2022-03-02] MEDS: Aspirin 81 mg Enteric Coated Tablet PO SCH (10:00)
[2022-03-02] MEDS: Famotidine 20 MG TAB PO SCH (10:00)
[2022-03-02] MEDS: Carvedilol 3.125 MG TAB PO SCH (10:01)
[2022-03-02] MEDS: Heparin 5,000 UNITS/ML VIAL SC SCH (10:02)
[2022-03-02] MEDS: Cefepime 1 GM in Sodium Chloride 0.9% 100 ML IVPB SCH (10:06)
[2022-03-02] MEDS: HumuLIN 70/30 (300 UNITS/3 ML VIAL) SC SCH (10:16)
[2022-03-02 12:59] VITALS: BP 138/72; TEMP 97.4
== END 2022-03-02 15:01 | disposition home or self-care (01) | DRG 854 ==
LOC: ERS 21:47 → IMCU/EMU 02-26 00:32 → SURG B 02-28 22:43
PROVIDERS: ADMIT Internal Medicine; ATTEND Internal Medicine
PROC: 3E03329 Introduction of Other Anti-infective into Peripheral Vein, Percutaneous Approach (ICD-10-PCS; 2022-02-26)
PROC: 0FT44ZZ Resection of Gallbladder, Percutaneous Endoscopic Approach (ICD-10-PCS; principal; 2022-02-27)
PROC: BF151ZZ Fluoroscopy of Liver using Low Osmolar Contrast (ICD-10-PCS; 2022-02-27)
PROC: BF101ZZ Fluoroscopy of Bile Ducts using Low Osmolar Contrast (ICD-10-PCS; 2022-02-27)
PROC: 0DJ08ZZ Inspection of Upper Intestinal Tract, Via Natural or Artificial Opening Endoscopic (ICD-10-PCS; 2022-03-01)
PROC: BF141ZZ Fluoroscopy of Gallbladder, Bile Ducts and Pancreatic Ducts using Low Osmolar Contrast (ICD-10-PCS; 2022-03-01)
DX: A41.9 Sepsis, unspecified organism (principal); N17.9 Acute kidney failure, unspecified; N39.0 Urinary tract infection, site not specified; J98.11 Atelectasis; J90 Pleural effusion, not elsewhere classified; E87.1 Hypo-osmolality and hyponatremia; E87.2 Acidosis; N18.4 Chronic kidney disease, stage 4 (severe); K80.12 Calculus of gallbladder with acute and chronic cholecystitis without obstruction; I69.354 Hemiplegia and hemiparesis following cerebral infarction affecting left non-dominant side; E78.5 Hyperlipidemia, unspecified; E87.5 Hyperkalemia; K21.9 Gastro-esophageal reflux disease without esophagitis; E11.51 Type 2 diabetes mellitus with diabetic peripheral angiopathy without gangrene; K29.80 Duodenitis without bleeding; K59.00 Constipation, unspecified; E11.22 Type 2 diabetes mellitus with diabetic chronic kidney disease; I12.9 Hypertensive chronic kidney disease with stage 1 through stage 4 chronic kidney disease, or unspecified chronic kidney disease; D63.1 Anemia in chronic kidney disease; Z20.822 Contact with and (suspected) exposure to COVID-19; E11.65 Type 2 diabetes mellitus with hyperglycemia; Z95.0 Presence of cardiac pacemaker; Z98.890 Other specified postprocedural states; Z89.512 Acquired absence of left leg below knee; Z89.511 Acquired absence of right leg below knee; Z79.82 Long term (current) use of aspirin; Z79.899 Other long term (current) drug therapy; Z79.4 Long term (current) use of insulin
CPT/HCPCS: 36415; 36416; 47532; 71045; 74176; 74330; 76705; 80048; 80053; 80202; 81003; 81015; 82550; 82553; 82570; 83605; 83690; 83735; 84300; 84484; 85025; 86850; 86900; 86901; 87040; 87086; 88304; 93005; 96361; 96365; 96375; C1713; J0610; J0692; J1100; J1610; J1644; J1815; J1956; J2250; J2405; J2704; J3370; J3490; J7611; J7999; Q9967; U0002

== ENCOUNTER 2022-03-04 20:16 | Inpatient (IN) | payer MEDICAID, SELFPAY ==
[2022-03-04 21:37] LABS: #Basophils 0.1 thou/uL (0.0-0.2); #Eosinphils 0.2 thou/uL (0.0-0.7); #Lymphocytes 2.1 thou/uL (1.20-3.40); #Monocytes 0.9 thou/uL (0.11-0.59); #Neutrophils 6.9 thou/uL (1.40-6.50); %Basophils 0.6 % (0.0-1.0); %Eosinophils 2.3 % (0.0-10.0); %Lymphocytes 20.6 % (21.0-51.0); %Monocytes 8.7 % (0.0-10.0); %Neutrophils 67.8 % (42.0-75.0); Mean Corpuscular HGB CONC 31.7 g/dL (32.0-36.0); Mean Corpuscular Hemoglobin 29.5 pg (27.0-31.0); Mean Corpuscular Volume 92.9 fL (78.0-98.0); Mean Platelet Volume 10.2 fL (7.4-10.4); Platelet Count 124 thou/uL (130-400); RBC Distribution Width 16.1 % (11.5-14.5); Red Blood Cell (RBC) Count 2.71 mill/uL (4.20-5.40); White Blood Cell (WBC) Count 10.2 thou/uL (4.8-10.8)
[2022-03-04 22:45] LABS: Albumin 2.5 g/dL (3.4-4.8)
[2022-03-04 22:46] LABS: Chloride 105 mmol/L (98-107); Potassium 5.2 mmol/L (3.5-5.1); Sodium 133 mmol/L (136-145)
[2022-03-04 22:47] LABS: Calcium 7.3 mg/dL (7.8-10.44)
[2022-03-04 22:48] LABS: Globulin 3.3 g/dL (2.4-3.5); Protein, Total 5.8 g/dL (5.8-8.1)
[2022-03-04 22:49] LABS: Anion Gap 15 mmol/L (10-20); Bilirubin, Total 0.5 mg/dL (0.2-1.2); Carbon Dioxide 18 mmol/L (23-31)
[2022-03-04 22:50] LABS: Alkaline Phosphatase 70 U/L (40-110)
[2022-03-04 22:51] LABS: Calc. Creatinine Clearance 0 mL/min (70-130); Estimated GFR 29
[2022-03-04 22:52] LABS: BUN (Urea Nitrogen) 35 mg/dL (9.8-20.1)
[2022-03-04 22:53] LABS: ALT (SGPT) 27 U/L (8-55); AST (SGOT) 30 U/L (5-34)
[2022-03-04 22:56] LABS: Glucose 58 mg/dL (80-115)
[2022-03-05] MEDS ORDERED: Furosemide 20 MG/2 ML VIAL ONE (00:45)
[2022-03-05] MEDS ORDERED: Furosemide 40 MG/4 ML VIAL ONE ×2 (00:45→05:51)
[2022-03-05] MEDS ORDERED: Aspirin Chewable 81 MG TAB ONE (00:58)
[2022-03-05] MEDS ORDERED: Dextrose 50% Abboject 50 ML SYRINGE SLOW IVP PRN (01:01)
[2022-03-05] MEDS ORDERED: Dextrose 5% in Water 1,000 ML IV PRN (01:01)
[2022-03-05] MEDS ORDERED: Acetaminophen 325 MG TAB PO PRN (01:01)
[2022-03-05] MEDS ORDERED: HYDROcodone/Acetaminophen 5/325 mg Tablet PO PRN (01:01)
[2022-03-05] MEDS ORDERED: HumaLOG 300 UNITS/3 ML VIAL SC PRN (01:01)
[2022-03-05] MEDS ORDERED: Ondansetron PF 4 MG/2 ML Vial IVP PRN (01:01)
[2022-03-05] MEDS ORDERED: Bisacodyl 5 MG TAB PO PRN (01:01)
[2022-03-05] MEDS ORDERED: Nitroglycerin 0.4 MG TAB (25 Tab Bottle) SL PRN (01:06)
[2022-03-05] MEDS ORDERED: hydrALAZINE 20 MG/ML VIAL SLOW IVP PRN (01:06)
[2022-03-05] MEDS ORDERED: Morphine 2 MG/ML VIAL SLOW IVP PRN (01:06)
[2022-03-05 01:18] LABS: Troponin I 0.047 ng/mL (< 0.028)
[2022-03-05] MEDS ORDERED: traMADol HCl 50 MG TAB PO PRN (01:27)
[2022-03-05 02:52] LABS: CKMB 1.7 ng/mL (0-6.6)
[2022-03-05 03:26] LABS: Bilirubin Negative (Negative); Blood, Urine 3+ (Negative); Clarity Extra Turbid (Clear); Glucose, Urine (Dipstick) 50 mg/dL (Negative); Ketone, Urine Negative (Negative); Leukocyte 500 Leu/uL (Negative); Nitrite Negative (Negative); Protein, Urine (Dipstick) 70 mg/dL (Neg-Trace); RBC/HPF Greater than 50 HPF (0-3); Specific Gravity, Urine 1.008 (1.002-1.036); Squamous Epithelial 0-3 HPF (0-3); Urobilinogen Normal mg/dL (Less than 2); WBC/HPF Greater than 50 HPF (0-3); Yeast-Budding 2+ HPF (None Seen); pH, Urine 6.5 (5.0-9.0)
[2022-03-05 03:37] LABS: Bacteria/HPF 1+ HPF (None Seen)
[2022-03-05 04:38] LABS: #Eosinphils 0.3 thou/uL (0.0-0.7); #Lymphocytes 2.6 thou/uL (1.20-3.40); #Monocytes 0.8 thou/uL (0.11-0.59); %Basophils 0.3 % (0.0-1.0); %Eosinophils 2.8 % (0.0-10.0); %Lymphocytes 26.9 % (21.0-51.0); %Monocytes 7.9 % (0.0-10.0); %Neutrophils 62.2 % (42.0-75.0); Hemoglobin 7.9 g/dL (12.0-16.0); Mean Corpuscular HGB CONC 31.2 g/dL (32.0-36.0); Mean Corpuscular Hemoglobin 29.2 pg (27.0-31.0); Mean Corpuscular Volume 93.7 fL (78.0-98.0); Mean Platelet Volume 10.4 fL (7.4-10.4); Platelet Count 120 thou/uL (130-400); RBC Distribution Width 16.2 % (11.5-14.5); Red Blood Cell (RBC) Count 2.71 mill/uL (4.20-5.40); White Blood Cell (WBC) Count 9.7 thou/uL (4.8-10.8)
[2022-03-05 05:02] LABS: Troponin I 0.057 ng/mL (< 0.028)
[2022-03-05 05:09] LABS: Albumin 2.5 g/dL (3.4-4.8); Anion Gap 16 mmol/L (10-20); BUN (Urea Nitrogen) 34 mg/dL (9.8-20.1); BUN/Creatinine Ratio 17.26; Calc. Creatinine Clearance 0 mL/min (70-130); Calcium 7.8 mg/dL (7.8-10.44); Carbon Dioxide 20 mmol/L (23-31); Chloride 103 mmol/L (98-107); Estimated GFR 28; Glucose 120 mg/dL (80-115); Phosphorus 3.3 mg/dL (2.3-4.7); Potassium 5.8 mmol/L (3.5-5.1); Sodium 133 mmol/L (136-145)
[2022-03-05] MEDS ORDERED: Furosemide 40 MG/4 ML VIAL SLOW IVP SCH (06:00)
[2022-03-05 08:49] LABS: Troponin I 0.046 ng/mL (< 0.028)
[2022-03-05] MEDS ORDERED: Losartan 25 MG TAB PO SCH (09:00)
[2022-03-05] MEDS ORDERED: Clopidogrel Bisulfate 75 MG TAB ONE (10:16)
[2022-03-05] MEDS ORDERED: Aspirin 81 mg Enteric Coated Tablet ONE (10:16)
[2022-03-05] MEDS ORDERED: Famotidine 20 MG TAB ONE (10:16)
[2022-03-05] MEDS ORDERED: Enoxaparin Sodium 30 MG/0.3 ML SYRINGE ONE (10:16)
[2022-03-05] MEDS ORDERED: Amlodipine 5 MG TAB ONE (10:16)
[2022-03-05 10:17] LABS: Anion Gap 14 mmol/L (10-20); BUN (Urea Nitrogen) 33 mg/dL (9.8-20.1); Calc. Creatinine Clearance 0 mL/min (70-130); Calcium 8.4 mg/dL (7.8-10.44); Carbon Dioxide 25 mmol/L (23-31); Chloride 101 mmol/L (98-107); Estimated GFR 27; Glucose 143 mg/dL (80-115); Sodium 135 mmol/L (136-145)
[2022-03-05] MEDS: Clopidogrel Bisulfate 75 MG TAB PO SCH (10:22)
[2022-03-05] MEDS: Amlodipine 5 MG TAB PO SCH (10:22)
[2022-03-05] MEDS: Aspirin 81 mg Enteric Coated Tablet PO SCH (10:22)
[2022-03-05] MEDS: Famotidine 20 MG TAB PO SCH (10:23)
[2022-03-05] MEDS: Enoxaparin Sodium 30 MG/0.3 ML SYRINGE SC SCH (10:23)
[2022-03-05] MEDS ORDERED: Epoetin (ESRD) 20,000 UNITS/ML SC SCH (12:00)
[2022-03-05] MEDS: LACTINEX 1 TAB PO SCH (13:47)
[2022-03-05 14:27] VITALS: BMI 33.3
[2022-03-05] MEDS ORDERED: Epoetin (ESRD) 10,000 UNITS/ML VIAL SC SCH (14:45)
[2022-03-05] MEDS: Furosemide 40 MG TAB PO SCH (14:50)
[2022-03-05 16:29] LABS: Creatinine, Urine 29.76 mg/dL (47-110)
[2022-03-05] MEDS: HumaLOG 300 UNITS/3 ML VIAL SC PRN (17:14)
[2022-03-05] MEDS: Atorvastatin Calcium 10 MG TAB PO SCH (22:15)
[2022-03-06 04:09] LABS: #Eosinphils 0.2 thou/uL (0.0-0.7); #Lymphocytes 2.4 thou/uL (1.20-3.40); #Monocytes 0.7 thou/uL (0.11-0.59); #Neutrophils 5.8 thou/uL (1.40-6.50); %Basophils 0.5 % (0.0-1.0); %Eosinophils 2.2 % (0.0-10.0); %Lymphocytes 26.2 % (21.0-51.0); %Monocytes 7.4 % (0.0-10.0); %Neutrophils 63.7 % (42.0-75.0); Hemoglobin 7.9 g/dL (12.0-16.0); Mean Corpuscular Hemoglobin 28.7 pg (27.0-31.0); Mean Corpuscular Volume 92.7 fL (78.0-98.0); Mean Platelet Volume 10.6 fL (7.4-10.4); Platelet Count 126 thou/uL (130-400); RBC Distribution Width 16.1 % (11.5-14.5); Red Blood Cell (RBC) Count 2.77 mill/uL (4.20-5.40); White Blood Cell (WBC) Count 9.1 thou/uL (4.8-10.8)
[2022-03-06 04:30] LABS: Anion Gap 14 mmol/L (10-20); BUN (Urea Nitrogen) 33 mg/dL (9.8-20.1); Calc. Creatinine Clearance 27 mL/min (70-130); Carbon Dioxide 24 mmol/L (23-31); Chloride 102 mmol/L (98-107); Estimated GFR 28; Glucose 161 mg/dL (80-115); Potassium 3.9 mmol/L (3.5-5.1); Sodium 136 mmol/L (136-145)
[2022-03-06] MEDS ORDERED: Furosemide 40 MG TAB PO SCH (07:30)
[2022-03-06] MEDS: LACTINEX 1 TAB PO SCH (11:00)
[2022-03-06] MEDS: Amlodipine 5 MG TAB PO SCH (11:05)
[2022-03-06] MEDS: Clopidogrel Bisulfate 75 MG TAB PO SCH (11:06)
[2022-03-06] MEDS: Aspirin 81 mg Enteric Coated Tablet PO SCH (11:06)
[2022-03-06] MEDS: Famotidine 20 MG TAB PO SCH (11:06)
[2022-03-06] MEDS: Enoxaparin Sodium 30 MG/0.3 ML SYRINGE SC SCH (11:09)
[2022-03-06] MEDS: Sodium Bicarbonate Tab 325 MG TAB PO SCH ×2 (11:40→21:38)
[2022-03-06] MEDS: Furosemide 40 MG TAB PO SCH (11:41)
[2022-03-06] MEDS: HumaLOG 300 UNITS/3 ML VIAL SC PRN (18:12)
[2022-03-06] MEDS: Atorvastatin Calcium 10 MG TAB PO SCH (21:38)
[2022-03-07 04:26] LABS: #Basophils 0.1 thou/uL (0.0-0.2); #Eosinphils 0.2 thou/uL (0.0-0.7); #Lymphocytes 3.4 thou/uL (1.20-3.40); #Monocytes 0.9 thou/uL (0.11-0.59); #Neutrophils 4.8 thou/uL (1.40-6.50); %Basophils 0.5 % (0.0-1.0); %Eosinophils 1.8 % (0.0-10.0); %Lymphocytes 36.1 % (21.0-51.0); %Neutrophils 51.6 % (42.0-75.0); Hemoglobin 8.1 g/dL (12.0-16.0); Mean Corpuscular HGB CONC 30.7 g/dL (32.0-36.0); Mean Corpuscular Hemoglobin 28.8 pg (27.0-31.0); Mean Corpuscular Volume 93.8 fL (78.0-98.0); Mean Platelet Volume 10.2 fL (7.4-10.4); Platelet Count 120 thou/uL (130-400); RBC Distribution Width 16.4 % (11.5-14.5); Red Blood Cell (RBC) Count 2.81 mill/uL (4.20-5.40); White Blood Cell (WBC) Count 9.3 thou/uL (4.8-10.8)
[2022-03-07 04:53] LABS: Anion Gap 15 mmol/L (10-20); BUN (Urea Nitrogen) 36 mg/dL (9.8-20.1); Calc. Creatinine Clearance 26 mL/min (70-130); Calcium 7.5 mg/dL (7.8-10.44); Carbon Dioxide 23 mmol/L (23-31); Chloride 102 mmol/L (98-107); Estimated GFR 27; Glucose 145 mg/dL (80-115); Potassium 3.7 mmol/L (3.5-5.1); Sodium 136 mmol/L (136-145)
[2022-03-07] MEDS ORDERED: cefTRIAXone\\ROCEPHIN 1 GM in Sodium Chloride 0.9% 100 ML IVPB SCH (08:00)
[2022-03-07] MEDS ORDERED: Fluconazole 100 MG TAB PO SCH (08:00)
[2022-03-07] MEDS ORDERED: Floranex 1 GM Packet PO SCH (09:00)
[2022-03-07] MEDS: Furosemide 40 MG TAB PO SCH ×2 (09:28→09:34)
[2022-03-07] MEDS: Aspirin 81 mg Enteric Coated Tablet PO SCH (09:29)
[2022-03-07] MEDS: Sodium Bicarbonate Tab 325 MG TAB PO SCH (09:30)
[2022-03-07] MEDS: Clopidogrel Bisulfate 75 MG TAB PO SCH (09:30)
[2022-03-07] MEDS: Amlodipine 5 MG TAB PO SCH (09:30)
[2022-03-07] MEDS: Carvedilol 3.125 MG TAB PO SCH ×2 (09:31→17:35)
[2022-03-07] MEDS: Famotidine 20 MG TAB PO SCH (09:31)
[2022-03-07] MEDS: Enoxaparin Sodium 30 MG/0.3 ML SYRINGE SC SCH (09:35)
[2022-03-07] MEDS ORDERED: Furosemide 20 MG TAB PO SCH (09:45)
[2022-03-07] MEDS: HumaLOG 300 UNITS/3 ML VIAL SC PRN (12:21)
[2022-03-07 17:27] VITALS: BP 118/55; TEMP 98.4
[2022-03-08] MEDS ORDERED: Furosemide 20 MG TAB PO SCH (07:30)
== END 2022-03-07 19:30 | disposition home or self-care (01) | DRG 291 ==
LOC: ERS 20:16 → ERHOLD 03-05 00:44 → 2NO 03-05 13:16 → OBSVTOIN 03-06 16:38
PROVIDERS: ADMIT Internal Medicine; ATTEND Family Medicine
PROC: 0T2BX0Z Change Drainage Device in Bladder, External Approach (ICD-10-PCS; principal; 2022-03-06)
DX: I13.2 Hypertensive heart and chronic kidney disease with heart failure and with stage 5 chronic kidney disease, or end stage renal disease (principal); I50.23 Acute on chronic systolic (congestive) heart failure; N39.0 Urinary tract infection, site not specified; E87.2 Acidosis; N17.9 Acute kidney failure, unspecified; E87.1 Hypo-osmolality and hyponatremia; N18.5 Chronic kidney disease, stage 5; I69.359 Hemiplegia and hemiparesis following cerebral infarction affecting unspecified side; E11.22 Type 2 diabetes mellitus with diabetic chronic kidney disease; E11.51 Type 2 diabetes mellitus with diabetic peripheral angiopathy without gangrene; E11.649 Type 2 diabetes mellitus with hypoglycemia without coma; D63.1 Anemia in chronic kidney disease; I49.5 Sick sinus syndrome; N13.5 Crossing vessel and stricture of ureter without hydronephrosis; E87.5 Hyperkalemia; E88.09 Other disorders of plasma-protein metabolism, not elsewhere classified; Z89.512 Acquired absence of left leg below knee; Z89.511 Acquired absence of right leg below knee; Z79.82 Long term (current) use of aspirin; Z79.4 Long term (current) use of insulin; Z79.899 Other long term (current) drug therapy; Z98.890 Other specified postprocedural states; Z95.0 Presence of cardiac pacemaker
CPT/HCPCS: 36415; 36416; 51702; 71045; 80048; 80053; 80069; 81001; 82553; 82570; 83880; 84156; 84300; 84484; 85025; 93005; 93306; 96372; 96374; 96376; G0378; J0696; J1650; J1815; J1940; J3490; Q4081

== ENCOUNTER 2022-04-29 20:53 | Observation (INO) | payer MEDICAID, OTHER, SELFPAY ==
[2022-04-29 22:45] LABS: #Eosinphils 0.5 thou/uL (0.0-0.7); #Lymphocytes 2.6 thou/uL (1.20-3.40); #Monocytes 0.6 thou/uL (0.11-0.59); %Basophils 0.5 % (0.0-1.0); %Eosinophils 5.7 % (0.0-10.0); %Lymphocytes 30.2 % (21.0-51.0); %Monocytes 6.8 % (0.0-10.0); %Neutrophils 56.9 % (42.0-75.0); Hemoglobin 9.1 g/dL (12.0-16.0); Mean Corpuscular HGB CONC 33.1 g/dL (32.0-36.0); Mean Corpuscular Hemoglobin 28.5 pg (27.0-31.0); Mean Corpuscular Volume 86.1 fL (78.0-98.0); Mean Platelet Volume 10.3 fL (7.4-10.4); Platelet Count 171 thou/uL (130-400); RBC Distribution Width 15.2 % (11.5-14.5); White Blood Cell (WBC) Count 8.8 thou/uL (4.8-10.8)
[2022-04-29 23:08] LABS: ALT (SGPT) 19 U/L (8-55); AST (SGOT) 26 U/L (5-34); Albumin 3.5 g/dL (3.4-4.8); Alkaline Phosphatase 115 U/L (40-110); Anion Gap 17 mmol/L (10-20); BUN (Urea Nitrogen) 41 mg/dL (9.8-20.1); Bilirubin, Total 0.4 mg/dL (0.2-1.2); Calc. Creatinine Clearance 0 mL/min (70-130); Calcium 8.3 mg/dL (7.8-10.44); Carbon Dioxide 14 mmol/L (23-31); Chloride 103 mmol/L (98-107); Estimated GFR 26; Globulin 3.7 g/dL (2.4-3.5); Glucose 253 mg/dL (80-115); Protein, Total 7.2 g/dL (5.8-8.1); Sodium 129 mmol/L (136-145)
[2022-04-30 01:41] LABS: Amphetamine Not Detected (NotDetected); Barbiturates Screen Not Detected (NotDetected); Benzodiazepine Screen Not Detected (NotDetected); Cocaine Metabolite Screen Not Detected (NotDetected); Methadone Not Detected (NotDetected); Methamphetamine Not Detected (NotDetected); Opiate Screen Not Detected (NotDetected); Oxycodone Screen Not Detected (NotDetected); Phencyclidine (PCP) Not Detected (NotDetected); THC/Cannabinoid Screen Not Detected (NotDetected); Tricyclic Screen Not Detected (NotDetected)
[2022-04-30 02:29] VITALS: BMI 35.8
[2022-04-30] MEDS ORDERED: Dextrose 50% Abboject 50 ML SYRINGE SLOW IVP PRN (07:51)
[2022-04-30] MEDS ORDERED: HumaLOG 300 UNITS/3 ML VIAL SC PRN (07:51)
[2022-04-30] MEDS ORDERED: Dextrose 5% in Water 1,000 ML IV PRN (07:51)
[2022-04-30] MEDS: Sodium Chloride 0.9% 1,000 ML IV SCH ×2 (08:48→16:28)
[2022-04-30] MEDS: Aspirin 81 mg Enteric Coated Tablet PO SCH (08:50)
[2022-04-30] MEDS ORDERED: Famotidine 20 MG TAB PO SCH (09:00)
[2022-04-30] MEDS ORDERED: Insulin Glargine 30 UNITS/0.3 ML VIAL SC SCH (09:00)
[2022-04-30] MEDS: Heparin 5,000 UNITS/ML VIAL SC SCH ×3 (09:12→21:51)
[2022-04-30 09:38] LABS: Bacteria/HPF 4+ HPF (None Seen); Bilirubin Negative (Negative); Blood, Urine 3+ (Negative); Clarity Turbid (Clear); Glucose, Urine (Dipstick) Normal (Negative); Ketone, Urine Negative (Negative); Leukocyte 500 Leu/uL (Negative); Nitrite Negative (Negative); Protein, Urine (Dipstick) 30 mg/dL (Neg-Trace); Specific Gravity, Urine 1.007 (1.002-1.036); Squamous Epithelial 0-3 HPF (0-3); Urobilinogen Normal mg/dL (Less than 2); WBC/HPF Greater than 50 HPF (0-3)
[2022-04-30 17:18] LABS: Anion Gap 15 mmol/L (10-20); BUN (Urea Nitrogen) 38 mg/dL (9.8-20.1); Calc. Creatinine Clearance 25 mL/min (70-130); Calcium 8.3 mg/dL (7.8-10.44); Carbon Dioxide 14 mmol/L (23-31); Chloride 104 mmol/L (98-107); Estimated GFR 29; Glucose 172 mg/dL (80-115); Potassium 4.6 mmol/L (3.5-5.1); Sodium 128 mmol/L (136-145)
[2022-04-30] MEDS ORDERED: cefTRIAXone\\ROCEPHIN 1 GM in Sodium Chloride 0.9% 100 ML IVPB SCH (23:00)
[2022-05-01] MEDS ORDERED: HumaLOG 300 UNITS/3 ML VIAL SC PRN (04:20)
[2022-05-01 04:40] LABS: #Basophils 0.1 thou/uL (0.0-0.2); #Eosinphils 0.4 thou/uL (0.0-0.7); #Lymphocytes 2.7 thou/uL (1.20-3.40); #Monocytes 0.5 thou/uL (0.11-0.59); #Neutrophils 3.9 thou/uL (1.40-6.50); %Basophils 0.9 % (0.0-1.0); %Eosinophils 5.5 % (0.0-10.0); %Lymphocytes 35.3 % (21.0-51.0); %Monocytes 6.1 % (0.0-10.0); %Neutrophils 52.1 % (42.0-75.0); Hemoglobin 9.1 g/dL (12.0-16.0); Mean Corpuscular HGB CONC 32.4 g/dL (32.0-36.0); Mean Corpuscular Hemoglobin 28.4 pg (27.0-31.0); Mean Corpuscular Volume 87.7 fL (78.0-98.0); Mean Platelet Volume 10.5 fL (7.4-10.4); Platelet Count 146 thou/uL (130-400); RBC Distribution Width 15.3 % (11.5-14.5); Red Blood Cell (RBC) Count 3.21 mill/uL (4.20-5.40); White Blood Cell (WBC) Count 7.5 thou/uL (4.8-10.8)
[2022-05-01 05:00] LABS: ALT (SGPT) 22 U/L (8-55); AST (SGOT) 25 U/L (5-34); Albumin 3.1 g/dL (3.4-4.8); Alkaline Phosphatase 106 U/L (40-110); Anion Gap 14 mmol/L (10-20); BUN (Urea Nitrogen) 36 mg/dL (9.8-20.1); Bilirubin, Total 0.3 mg/dL (0.2-1.2); Calc. Creatinine Clearance 25 mL/min (70-130); Calcium 8.1 mg/dL (7.8-10.44); Carbon Dioxide 14 mmol/L (23-31); Chloride 107 mmol/L (98-107); Estimated GFR 28; Globulin 3.8 g/dL (2.4-3.5); Glucose 164 mg/dL (80-115); Potassium 4.6 mmol/L (3.5-5.1); Protein, Total 6.9 g/dL (5.8-8.1); Sodium 130 mmol/L (136-145)
[2022-05-01] MEDS: Aspirin 81 mg Enteric Coated Tablet PO SCH (08:21)
[2022-05-01] MEDS: Sodium Chloride 0.9% 1,000 ML IV SCH (08:22)
[2022-05-01] MEDS: Heparin 5,000 UNITS/ML VIAL SC SCH ×2 (08:22→14:53)
[2022-05-01] MEDS ORDERED: Sodium Chloride 0.9% 500 ML IV SCH (09:00)
[2022-05-01] MEDS ORDERED: Sodium Chloride 0.9% 1,000 ML IV SCH ×2 (09:00)
[2022-05-01 13:54] LABS: Anion Gap 16 mmol/L (10-20); BUN (Urea Nitrogen) 37 mg/dL (9.8-20.1); Calc. Creatinine Clearance 24 mL/min (70-130); Calcium 8.8 mg/dL (7.8-10.44); Carbon Dioxide 13 mmol/L (23-31); Chloride 108 mmol/L (98-107); Estimated GFR 28; Glucose 227 mg/dL (80-115); Potassium 5.2 mmol/L (3.5-5.1); Sodium 132 mmol/L (136-145)
[2022-05-01 16:37] VITALS: BP 128/60; TEMP 98.4
== END 2022-05-01 16:20 | disposition home or self-care (01) ==
LOC: ERS 20:53 → 2NO 04-30 00:29 → ERHOLD 04-30 02:20 → 2NO 04-30 02:21
PROVIDERS: ADMIT Family Medicine; ATTEND Family Medicine
DX: E86.0 Dehydration (principal); N17.9 Acute kidney failure, unspecified; E87.1 Hypo-osmolality and hyponatremia; I49.5 Sick sinus syndrome; E11.9 Type 2 diabetes mellitus without complications; Z79.4 Long term (current) use of insulin; I10 Essential (primary) hypertension; I69.354 Hemiplegia and hemiparesis following cerebral infarction affecting left non-dominant side; Z79.82 Long term (current) use of aspirin; Z79.899 Other long term (current) drug therapy; Z95.0 Presence of cardiac pacemaker; Z89.511 Acquired absence of right leg below knee; Z89.512 Acquired absence of left leg below knee; Z20.822 Contact with and (suspected) exposure to COVID-19
CPT/HCPCS: 36415; 36416; 70450; 71045; 80048; 80053; 80306; 81003; 81015; 83880; 84484; 85025; 87077; 87086; 87186; 93005; 93880; 96374; G0378; J0696; J1644; J1815; J3490; J7050; U0003; U0005

== ENCOUNTER 2022-07-26 13:13 | Inpatient (IN) | payer OTHER ==
[2022-07-26] MEDS ORDERED: Morphine 4 MG/ML VIAL SLOW IVP PRN (14:12)
[2022-07-26] MEDS ORDERED: Lorazepam 2 MG/ML VIAL SLOW IVP PRN (14:15)
[2022-07-26] MEDS ORDERED: Hyoscyamine Sulfate SL 0.125 mg Tablet SL PRN (14:15)
[2022-07-26] MEDS ORDERED: Senokot S 8.6-50 MG TAB PO PRN (14:15)
[2022-07-26] MEDS ORDERED: diphenhydrAMINE 50 MG/ML VIAL IVP PRN (14:15)
[2022-07-26] MEDS ORDERED: Milk Of Magnesia 30 ML UDCUP PO PRN (14:15)
[2022-07-26] MEDS ORDERED: Acetaminophen 650 MG Suppository PR PRN (14:15)
[2022-07-26] MEDS ORDERED: Zolpidem Tartrate 5 MG TAB PO PRN (14:15)
[2022-07-26] MEDS ORDERED: Haloperidol Lactate 5 MG/ML VIAL SLOW IVP PRN (14:15)
[2022-07-26] MEDS ORDERED: Promethazine HCl 25 MG SUPP PR PRN (14:15)
[2022-07-26] MEDS ORDERED: Scopolamine 1.5 mg/72 hour Patch TOP PRN (14:15)
[2022-07-26] MEDS ORDERED: Ondansetron PF 4 MG/2 ML Vial IVP PRN (14:15)
[2022-07-26] MEDS ORDERED: chlorproMAZINE HCl 50 MG/2 ML AMP IM PRN (14:15)
[2022-07-26] MEDS ORDERED: Acetaminophen 325 MG TAB PO PRN (14:15)
[2022-07-26] MEDS ORDERED: Loperamide HCl 2 MG CAP PO PRN (14:30)
[2022-07-26 22:13] VITALS: BP 72/42; TEMP 98.1
== END 2022-07-26 20:50 | disposition expired | DRG 951 ==
LOC: T4-A 13:13
PROVIDERS: ADMIT Family Medicine; ATTEND Family Medicine
DX: Z51.5 Encounter for palliative care (principal); I69.352 Hemiplegia and hemiparesis following cerebral infarction affecting left dominant side; K55.9 Vascular disorder of intestine, unspecified; I10 Essential (primary) hypertension; I49.5 Sick sinus syndrome; I95.9 Hypotension, unspecified; K66.8 Other specified disorders of peritoneum; E11.65 Type 2 diabetes mellitus with hyperglycemia